=== PATIENT | male | born 1980 | race Caucasian/White ===

== ENCOUNTER 2017-07-06 13:41 | Outpatient (CLI) | payer BC, OTHER ==
[~2017-07-06] VITALS: Ht 175.3 cm; Wt 98.9 kg
[2017-07-06] MEDS ORDERED: IOHEXOL 350 MG/ML 100 ML (OMNIPAQUE 350) VIAL IV ONE (13:45)
[2017-07-06] MEDS ORDERED: CATHETER FLUSH 10 ML SYR IV PRN (13:45)
[2017-07-06] MEDS ORDERED: NS 100 ML (IVPB) BAG IV ONE (13:45)
[2017-07-06 15:16] LABS: BASOPHILS # (AUTO) 0.1 10^3/uL (0.0-0.1); BASOPHILS % (AUTO) 1 % (0-10); EOSINOPHILS # (AUTO) 0.2 10^3/uL (0.0-0.3); EOSINOPHILS % (AUTO) 3 % (0-10); LYMPHOCYTES # (AUTO) 1.8 X 10^3 (1.0-4.0); LYMPHOCYTES % (AUTO) 25 % (12-44); MEAN CORPUSCULAR HEMOGLOBIN 30 PG (25-34); MEAN CORPUSCULAR HGB CONC 35 G/DL (32-36); MEAN CORPUSCULAR VOLUME 85 FL (80-99); MEAN PLATELET VOLUME 10.4 FL (7.4-10.4); MONOCYTES # (AUTO) 0.7 X 10^3 (0.0-1.0); MONOCYTES % (AUTO) 10 % (0-12); NEUTROPHILS # (AUTO) 4.5 X 10^3 (1.8-7.8); NEUTROPHILS % (AUTO) 62 % (42-75); PLATELET COUNT 184 10^3/uL (130-400); RED BLOOD COUNT 5.02 10^6/uL (4.35-5.85); RED CELL DISTRIBUTION WIDTH 13.4 % (10.0-14.5); WHITE BLOOD COUNT 7.3 10^3/uL (4.3-11.0)
[2017-07-06 15:35] LABS: ANION GAP 6 MMOL/L (5-14); BLOOD UREA NITROGEN 21 MG/DL (7-18); BUN/CREATININE RATIO 21; CALCIUM 8.8 MG/DL (8.5-10.1); CARBON DIOXIDE 27 MMOL/L (21-32); CHLORIDE 105 MMOL/L (98-107); CREATININE SERUM 0.99 MG/DL (0.60-1.30); GFR ESTIMATED > 60; GLUCOSE 87 MG/DL (70-105); POTASSIUM 4.5 MMOL/L (3.6-5.0); SODIUM 138 MMOL/L (135-145)
--- NOTE | 2017-07-06 17:11 | Diagnostic Imaging Report ---
PROCEDURE: CT neck soft tissue with contrast. TECHNIQUE: Multiple contiguous axial images were obtained through the neck after the administration of contrast. INDICATION: Patient reports mass left side anterior to the ear. States this has been present for years but is getting larger. FINDINGS: There is a well circumscribed mass within the superficial lobe of the left parotid gland measuring approximately 3 x 2.8 cm. This does appear to have some mixed enhancement following IV contrast. This is solid in nature. No cervical chain adenopathy of pathologic size is demonstrated. The right parotid gland appears normal. The submandibular glands are normal. There is good preservation of tissue planes along the strap muscles. There is normal enhancement of the cervical vessels. The parapharyngeal tissue planes appear normal. The nasopharynx and oropharynx appear normal as does the larynx. IMPRESSION: 1. There is a relatively well encapsulated soft tissue mass in the superficial lobe of the parotid gland on the left which is solid with some enhancement. In this age group, with history of slow growth of the tumor, pleomorphic adenoma would be number one in the differential. Mucoepidermoid carcinoma could not be excluded in this age group. Dictated by: Dictated on workstation # [id number]
== END 2017-07-06 15:10 | disposition home or self-care (01) ==
LOC: RAD 13:41
PROVIDERS: ATTEND Otolaryngology Otolaryngology/Facial Plastic Surgery
DX: R22.1 Localized swelling, mass and lump, neck (principal)
CPT/HCPCS: 36415; 70491; 80048; 85025; 87081; 93005

== ENCOUNTER 2017-07-22 06:00 | Day surgery (SDC) | payer BC, OTHER ==
[~2017-07-22] VITALS: Ht 175.3 cm; Wt 98.9 kg
[2017-07-22 06:05] VITALS: BP 148/96
[2017-07-22] MEDS: LACTATED RINGERS 1,000 ML IV PRN ×3 (06:20→10:30)
[2017-07-22] MEDS ORDERED: LACTATED RINGERS 1,000 ML IV PRN (06:40)
[2017-07-22] MEDS ORDERED: proPOfol 200 MG/20 ML (DIPRIVAN) VIAL IV ONE (06:45)
[2017-07-22] MEDS ORDERED: LIDOCAINE PF 2% 5 ML (XYLOCAINE) VIAL ONE (06:45)
[2017-07-22] MEDS ORDERED: SEVOFLURANE (ULTANE) 15 ML INHAL SOLN ONE ×12 (06:45→10:26)
[2017-07-22] MEDS ORDERED: fentaNYL INJECTION 100 MCG/2 ML AMP ONE ×3 (06:46→11:03)
[2017-07-22] MEDS ORDERED: MIDAZOLAM 2 MG/2 ML (VERSED) VIAL ONE (06:47)
[2017-07-22] MEDS ORDERED: ONDANSETRON 4 MG/2 ML (SDV) Z0FRAN ONE (06:55)
[2017-07-22] MEDS ORDERED: SUCCINYLCHOLINE INJ 100 MG/5 ML SYR ONE (06:55)
[2017-07-22] MEDS ORDERED: DEXAMETHASONE 10 MG/ML (DECADRON) 1 ML VIAL ONE (06:55)
--- NOTE | 2017-07-22 06:58 | Progress Note-Pre Operative ---
Pre-Operative Progress Note H&P Reviewed The H&P was reviewed, patient examined and no changes noted. Date Seen by Provider: Jul 22, 2017 Time Seen by Provider: 06:30 Date H&P Reviewed: Jul 22, 2017 Time H&P Reviewed: 06:30 Pre-Operative Diagnosis: Left Parotid Mass XANDER MONROY MD Jul 22, 2017 6:57 am
[2017-07-22] MEDS ORDERED: MUPIROCIN 2% OINT 22 GM (BACTROBAN) TUBE ONE (07:15)
[2017-07-22] MEDS ORDERED: LIDOCAINE/EPI 1%-1:200,000 (XYLOCAINE) 10 ML VIAL ONE (07:16)
[2017-07-22] MEDS ORDERED: NS IV 500 ML 0 ML ONE (07:18)
[2017-07-22] MEDS ORDERED: NEO/POLY/BACI (NEOSPORIN) OPHTH OINT 3.5 GM ONE (08:03)
[2017-07-22] MEDS ORDERED: BSS 15 ML ONE (08:06)
[2017-07-22] MEDS ORDERED: ONDANSETRON 4 MG/2 ML (SDV) Z0FRAN IVP PRN (11:30)
--- NOTE | 2017-07-22 11:34 | Progress Note-Post Operative ---
Post-Operative Progess Note Surgeon (s)/Oil Field Tester (s) Surgeon XANDER MONROY MD Oil Field Tester n/a Pre-Operative Diagnosis Left Parotid Mass Post-Operative Diagnosis same Post-Op Procedure Note Date of Procedure: Jul 22, 2017 Name of Procedure Performed: Left Partoidectomy with Preservation of VII nerve Description & Findings Description and Findings: n/a Anesthesia Type get Estimated Blood Loss minimal Packing none. Specimen(s) collected/removed large right parotid mass XANDER MONROY MD Jul 22, 2017 11:34 am
[2017-07-22] MEDS ORDERED: morphine INJ 10 MG/ML 1ML (SYR OR VIAL) ONE (11:40)
[2017-07-22] MEDS: morphine INJ 10 MG/ML 1ML (SYR OR VIAL) IVP PRN ×2 (11:42→11:51)
[2017-07-22] MEDS ORDERED: ACETAMINOPHEN 325 MG TABLET/CAPLET (TYLENOL) PO PRN (11:45)
[2017-07-22] MEDS: fentaNYL INJECTION 100 MCG/2 ML AMP IVP PRN ×4 (11:59→23:34)
[2017-07-22] MEDS: HYDROcodone/APAP 5 MG/325 MG (LORTAB) TAB PO PRN ×3 (13:06→21:36)
[2017-07-22] MEDS ORDERED: fentaNYL INJECTION 100 MCG/2 ML AMP IVP PRN (14:00)
[2017-07-22] MEDS: D5 1/2 NS W/KCL 20 MEQ/L 1,000 ML IV SCH (15:10)
[2017-07-22 16:00] VITALS: BP 160/92
[2017-07-22] MEDS ORDERED: CATHETER FLUSH 10 ML SYR IV PRN (17:30)
[2017-07-22] MEDS: ONDANSETRON 4 MG/2 ML (SDV) Z0FRAN IVP PRN ×2 (17:36→21:35)
--- NOTE | 2017-07-22 17:39 | Progress Note-Standard ---
Standard Progress Note Progress Notes/Assess & Plan Date Seen by Provider: Jul 22, 2017 Time Seen by Provider: 17:00 Progress/Assessment & Plan ENT-Jaden S/P Left Parotid doing well-mild nausea-received zofran also received fentanyl for pain INicison dry and intact-minimal drainage in drain Face-minimal to no weakness of left side of face overall doing well' may repeat fentanyl q 3-4 hours as needed zofran 4mg q 8 prn regular diet plan on drain out in am and then home path pending Final Diagnosis s/p left parotid XANDER MONROY MD Jul 22, 2017 5:39 pm
[2017-07-22 19:42] VITALS: BP 156/86
[2017-07-23] VITALS: BP 140/83
[2017-07-23] MEDS: HYDROcodone/APAP 5 MG/325 MG (LORTAB) TAB PO PRN ×2 (02:58→07:21)
[2017-07-23 04:00] VITALS: BP 145/77
[2017-07-23] MEDS: D5 1/2 NS W/KCL 20 MEQ/L 1,000 ML IV SCH ×2 (04:19→04:54)
[2017-07-23] MEDS: fentaNYL INJECTION 100 MCG/2 ML AMP IVP PRN (04:54)
--- NOTE | 2017-07-23 05:30 | Progress Note-Standard ---
Standard Progress Note Progress Notes/Assess & Plan Date Seen by Provider: Jul 23, 2017 Time Seen by Provider: 05:30 Progress/Assessment & Plan ENT-Roque S/P Left Parotid doing well-mild nausea-received zofran also received fentanyl for pain INicison dry and intact-minimal drainage in drain Face-minimal to no weakness of left side of face overall doing well' may repeat fentanyl q 3-4 hours as needed zofran 4mg q 8 prn regular diet plan on drain out in am and then home path pending ZAHEER-Roque Minimal drainge fro mdrain drain d'selma INcision -flat and intact face-good movement will dischage after breakfast RTC-1 week ft [facility] Discharge prescriptions in the chart along with note for work XANDER MONROY MD Jul 23, 2017 5:30 am
[2017-07-23 08:00] VITALS: BP 155/94
[2017-07-23] MEDS ORDERED: MUPIROCIN 2% OINT 22 GM (BACTROBAN) TUBE TOP SCH ×2 (08:17→08:30)
[2017-07-23] MEDS ORDERED: MUPI22OI2 TOP (08:42)
== END 2017-07-23 08:51 | disposition home or self-care (01) ==
LOC: SDC 06:00 → 4TH 12:25 → SDC 07-23 08:51
PROVIDERS: ATTEND Otolaryngology Otolaryngology/Facial Plastic Surgery
DX: C07 Malignant neoplasm of parotid gland (principal); F17.220 Nicotine dependence, chewing tobacco, uncomplicated
CPT/HCPCS: 88307

== ENCOUNTER 2019-12-04 15:26 | Emergency (ER) | payer BC, OTHER ==
[~2019-12-04] VITALS: Ht 175.3 cm; Wt 102.6 kg
[~2019-12-04 15:26] MED LIST: MUPI22OI2 TOP
--- NOTE | 2019-12-04 15:35 | ED Lower Extremity ---
General Chief Complaint: Lower Extremity Stated Complaint: FOOT INJ Source: patient Exam Limitations: no limitations History of Present Illness Date Seen by Provider: Dec 04, 2019 Time Seen by Provider: 15:35 Initial Comments 39-year-old male presents with pain and swelling to his right great toe. Patient reports around Wednesday of last week he was lifting some rohith when he thinks he jammed it. Reports that he has some mild pain and swelling in the joint. Patient reports his gotten a little bit worse since it started. He does not have any warmness to it. There is some mild erythema. He is concerned he possibly broke it. Patient denies any other injury since the initial insult. No other systemic complaints. Allergies and Home Medications Allergies Coded Allergies: No Known Drug Allergies (Unverified , 07/06/17) Home Medications Mupirocin 22 Gm Oint...g., 0 GM TOP BID Prescribed by: CALEB FARRELL on 07/23/17 0842 Patient Home Medication List Home Medication List Reviewed: Yes Review of Systems Constitutional: no symptoms reported Cardiovascular: no symptoms reported Musculoskeletal: see HPI Skin: see HPI Psychiatric/Neurological: No Symptoms Reported Past Rctsmzp-Vgoygo-Oxurfg Hx Past Med/Social Hx: Reviewed Nursing Past Med/Soc Hx Patient Social History Alcohol Use: Denies Use Recreational Drug Use: No Type Used: Smokeless Tobacco Recent Foreign Travel: No Contact w/Someone Who Travel: No Recent Hopitalizations: No Immunizations Up To Date Tetanus Booster (TDap): Unknown PED Vaccines UTD: No Date of Influenza Vaccine: May 10, 2017 Seasonal Allergies Seasonal Allergies: Yes Past Medical History Surgeries: Yes (LEFT WRIST, LEFT LEG X2, WISDOM TEETH, ) Respiratory: No Cardiac: No Neurological: No Gastrointestinal: No Musculoskeletal: No Degenerate Disk Disease Endocrine: No Cancer: No Psychosocial: No Integumentary: No Blood Disorders: No Family Medical History Patient reports no known family medical history. Physical Exam Vital Signs Vital Signs - First Documented 12/04/19 15:30 Temp 36.7 Pulse 76 Resp 16 B/P (MAP) 133/74 (93) Pulse Ox 99 O2 Delivery Room Air Capillary Refill : Height, Weight, BMI Height: 5'9.00" Weight: 218lbs. 0.0oz. 98.125890xj; 32.2 BMI Method: General Appearance: no apparent distress Neck: full range of motion Cardiovascular: regular rate, rhythm Respiratory: no respiratory distress Gastrointestinal: No distended Hips: bilateral hip non-tender Legs: bilateral leg non-tender Knees: bilateral knee non-tender Ankles: bilateral ankle non-tender Feet: right foot other (mild swelling of the joint on the right great toe. No warmth or erythema appreciated.) Neurologic/Psychiatric: alert, normal mood/affect, oriented x 3 Progress/Results/Core Measures Results/Orders My Orders Orders - CAROLINA LABOY DO Toe(S) (12/04/19 15:38) Vital Signs/I&O 12/04/19 15:30 Temp 36.7 Pulse 76 Resp 16 B/P (MAP) 133/74 (93) Pulse Ox 99 O2 Delivery Room Air Diagnostic Imaging Diagonstic Imaging: Xray Comments [place], [place] NAME: SONAM [facility]OSS [facility] REC#: [id number] PT STATUS: REG ER : 1980 PHYSICIAN: CAROLINA LABOY DO ADMIT DATE: 12/04/19/ER FS Draft Date of Exam:12/04/19 TOE(S) HISTORY: Pain in the great toe of the right foot x 1 week. No known injury. TECHNIQUE: Three views of the right great toe. COMPARISON: None. FINDINGS: No acute fracture or dislocation is seen in the right great toe. The alignment appears normal. There is minimal degenerative change at the 1st MTP joint. No cortical erosions are seen. No radiopaque foreign body is identified. IMPRESSION: No acute osseous abnormality is seen in the right great toe. Departure Impression Primary Impression: Sprain of toe, great, right Qualified Codes: S93.501A - Unspecified sprain of right great toe, initial encounter Disposition: HOME, SELF-CARE Condition: Stable Departure-Patient Inst. Referrals: NO,LOCAL PHYSICIAN (PCP/Family) Primary Care Physician Patient Instructions: Toe Injury (DC), Gout (DC), Foot Sprain (DC) Add. Discharge Instructions: Emergency department focuses on treating and ruling out life-threatening diseases. Whenever possible, a diagnosis is given. However, most patients are given an impression based on their history, physical exam, and workup during your brief time in the ER. Information about probable diagnosis and other educational material has been provided. Please take the time to read and understand this information. It is very important that you follow up with a physician as discussed during the visit today. Failure to adhere to your follow-up instructions may lead to severe disability, injury, or so please make sure to keep your appointments or obtain one as requested. Please keep in mind the emergency department is not designed to your primary care or "family doctor" and nonurgent issues are best evaluated by an outpatient physician All discharge instructions reviewed with patient and/or family. Voiced understanding. Scripts Naproxen (Naprosyn) 500 Mg Tablet 500 MG PO BID, #30 TAB 0 Refills Prov: CAROLINA LABOY DO 12/04/19 CAROLINA LABOY DO Dec 04, 2019 15:35
--- OUTSIDE RECORDS SUMMARY | 2019-12-04 15:48 | XMS REPORT | Continuity of Care Document ---
Author Organization Unknown Address Unknown Phone Unavailable Allergies Active Description Code Type Severity Reaction Onset Reported/Identified Relationship to Patient Clinical Status Yes No Allergy Information Available [id number] Drug Allergy Unknown N/A 017 Yes No Known Drug Allergies [id number] Drug Allergy Unknown N/A 07/06/2017 Medications There is no data. Problems Date Dx Coded Attending Type Code Diagnosis Diagnosed By 07/06/2017 XANDER MONROY MD, Ot R22 .1 LOCALIZED SWELLING, MASS AND LUMP, NECK 07/23/2017 XANDER MONROY MD Ot C07 MALIGNANT NEOPLASM OF PAROTID GLAND 07/23/2017 XANDER MONROY MD Ot F17.220 NICOTINE DEPENDENCE, CHEWING TOBACCO, UN 08/12/2017 XANDER MONROY MD Ot C07 MALIGNANT NEOPLASM OF PAROTID GLAND 08/12/2017 XANDER MONROY MD, Ot F17.220 NICOTINE DEPENDENCE, CHEWING TOBACCO, UN Procedures There is no data. Results Test Result Range Complete blood count (CBC) with automate d white blood cell (WBC) differential - 07/06/17 15:07 Blood leukocytes automated count (number/volume) 7.3 10*3/uL 4.3-11.0 Blood erythrocytes automated count (number/volume) 5.02 10*6/uL 4.35-5.85 Venous blood hemoglobin measurement (mass/volume) 15.1 g/dL 13.3-17.7 Blood hematocrit (volume fraction) 43 % 40-54 Automated erythrocyte mean corpuscular volume 85 [ foz_us] 80-99 Automated erythrocyte mean corpuscular h emoglobin (mass per erythrocyte) 30 pg 25-34 Automated erythrocyte mean corpuscular h emoglobin concentration measurement (mass/volume) 35 g/dL 32-36 Automated erythrocyte distribution width ratio 13. 4 % 10.0- 14.5 Automated blood platelet count (count/volume) 184 10*3/uL 130-400 Automated blood platelet mean volume measurement 10.4 [foz_us] 7.4-10.4 Automated blood neutrophils/100 leukocytes 62 % 42-75 Automated blood lymphocytes/100 leukocytes 25 % 12-44 Blood monocytes/100 leukocytes 10 % 0-12 Automated blood eosinophils/100 leukocytes 3 % 0-10 Automated blood basophils/100 leukocytes 1 % 0-10 Blood neutrophils automated count (number/volume) 4.5 10*3 1.8-7.8 Blood lymphocytes automated count (number/volume) 1.8 10*3 1.0-4.0 Blood monocytes automated count (number/volume) 0. 7 10*3 0.0-1.0 Automated eosinophil count 0.2 10*3/uL 0 .0-0.3 Automated blood basophil count (count/volume) 0.1 10*3/uL 0.0-0.1 Whole blood basic metabolic panel - 06/10 03/25 15:07 Serum or plasma sodium measurement (moles/volume) 138 mmol/L 135-145 Serum or plasma potassium measurement (moles/volume) 4.5 mmol/L 3.6-5.0 Serum or plasma chloride measurement (moles/volume) 105 mmol/L 98-107 Carbon dioxide 27 mmol/L 21-32 Serum or plasma anion gap determination (moles/volume) 6 mmol/L 5-14 Serum or plasma urea nitrogen measurement (mass/volume ) 21 mg/dL 7-18 Serum or plasma creatinine measurement (mass/volume) 0.99 mg/dL 0.60-1.30 Serum or plasma urea nitrogen/creatinine mass ratio 21 NRG Serum or plasma creatinine measurement w ith calculation of estimated glomerular filtration rate > NRG Serum or plasma glucose measurement (mass/volume) 87 mg/dL 70-105 Serum or plasma calcium measurement (mass/volume) 8.8 mg/dL 8.5-10.1 Methicillin resistant Staphylococcus aur eus (MRSA) screening culture - 07/06/17 15:07 Methicillin resistant Staphylococcus aureus (MRSA) scr eening culture NEG NRG Encounters ACCT No. Visit Date/Time Discharge Status Pt. Type Provider Facility Loc./Unit Complaint [id number] 07/22/2017 06:00:00 017 08:51:00 DIS Outpatient PORFIRIO CHUN, XANDER [facility] SDC LEFT NECK MASS, PLEOMOR PHIC ADENOMA [id number] 07/06/2017 13:41:00 017 15:10:00 DIS Outpatient PORFIRIO CHUN, XANDER [place] [facility] RAD LEFT NECK MASS
--- NOTE | 2019-12-04 15:59 | NUR ---
Report from Toya VILLASENOR.
--- NOTE | 2019-12-04 16:00 | Diagnostic Imaging Report ---
HISTORY: Pain in the great toe of the right foot x 1 week. No known injury. TECHNIQUE: Three views of the right great toe. COMPARISON: None. FINDINGS: No acute fracture or dislocation is seen in the right great toe. The alignment appears normal. There is minimal degenerative change at the 1st MTP joint. No cortical erosions are seen. No radiopaque foreign body is identified. IMPRESSION: No acute osseous abnormality is seen in the right great toe. Dictated by: Dictated on workstation # [id number]
[2019-12-04] MEDS ORDERED: NAPR-1071 PO (16:11)
[2019-12-04 16:15] VITALS: BP 136/69
== END 2019-12-04 16:15 | disposition home or self-care (01) ==
LOC: EDUNIT# 15:26 → ER FS 15:28
DX: S93.501A Unspecified sprain of right great toe, initial encounter (principal); W23.1XXA Caught, crushed, jammed, or pinched between stationary objects, initial encounter
CPT/HCPCS: 73660

== ENCOUNTER 2019-12-15 17:16 | Emergency (ER) | payer OTHER ==
[~2019-12-15] VITALS: Ht 173 cm; Wt 103.6 kg
[~2019-12-15 17:16] MED LIST changes: +NAPR-1071 PO
--- NOTE | 2019-12-15 17:39 | ED Upper Extremity ---
General Chief Complaint: Laceration Stated Complaint: THUMB LACERATION Nursing Triage Note: c/o laceration to L thumb while cutting rohith. Nursing Sepsis Screen: No Definite Risk Source: patient Exam Limitations: no limitations History of Present Illness Date Seen by Provider: December 15, 2019 Time Seen by Provider: 17:38 Initial Comments cut left thumb using a knife. not sure about tetanus status. Onset: just prior to arrival Allergies and Home Medications Allergies Coded Allergies: No Known Drug Allergies (Unverified , 07/06/17) Home Medications Mupirocin 22 Gm Oint...g., 0 GM TOP BID Prescribed by: CALEB FARRELL on 07/23/17 0842 Naproxen 500 Mg Tablet, 500 MG PO BID Prescribed by: CAROLINA LABOY on 12/04/19 1611 Oxycodone HCl/Acetaminophen 1 Each Tablet, 1 EACH PO Q4H PRN for PAIN-MODERATE Prescribed by: DELORES STILL on 12/15/19 1921 Patient Home Medication List Home Medication List Reviewed: Yes Review of Systems Constitutional: no symptoms reported Musculoskeletal: see HPI, other (thumb injury/ lac) Skin: see HPI Psychiatric/Neurological: See HPI Past Gdhvfve-Bilzpn-Hfalgy Hx Past Med/Social Hx: Reviewed Nursing Past Med/Soc Hx Patient Social History Alcohol Use: Denies Use Recreational Drug Use: No Smoking Status: Never a Smoker Type Used: Smokeless Tobacco Recent Foreign Travel: No Contact w/Someone Who Travel: No Recent Infectious Disease Expo: No Recent Hopitalizations: No Immunizations Up To Date Tetanus Booster (TDap): Unknown PED Vaccines UTD: No Date of Influenza Vaccine: May 10, 2017 Seasonal Allergies Seasonal Allergies: Yes Past Medical History Surgeries: Yes (LEFT WRIST, LEFT LEG X2, WISDOM TEETH, ) Respiratory: No Cardiac: No Neurological: No Gastrointestinal: No Musculoskeletal: No Degenerate Disk Disease Endocrine: No Cancer: No Psychosocial: No Integumentary: No Blood Disorders: No Family Medical History Patient reports no known family medical history. Physical Exam Vital Signs Vital Signs - First Documented 12/15/19 17:23 Temp 36.2 Pulse 85 Resp 18 B/P (MAP) 178/99 (125) Pulse Ox 98 Capillary Refill : Less Than 3 Seconds Height, Weight, BMI Height: 5'9.00" Weight: 218lbs. 0.0oz. 98.960554le; 34.00 BMI Method: General Appearance: WD/WN, no apparent distress Wrist: Yes normal inspection, Yes non-tender, Yes no evidence of injury, Yes normal ROM Hand: normal ROM Neurologic/Psychiatric: alert, normal mood/affect Skin: normal color, other (distal tip left thumb w sagital cut/ laceration flap of 1/[address] around. poor perfusion of flap. No nail involvement) Procedures/Interventions Wound Location: Upper Extremities (left thumb) Other Wound Location tip of left thumb- 2 cm sagital cut/ lac w 1/2 tip flap Wound Length (cm): 2 Wound's Depth, Shape: linear, flap Wound Explored: clean Anesthesia: 0.5% Sensorcaine Volume Anesthetic (ccs): 8 Suture: Ethlion Suture Size: 4-0 Number of Sutures: 5 Sterile Dressing Applied?: Yes Progress tolerated well. Initially blocked w lidocaine, but ineffective and what little effect there was only lasted an unusually short period. Followed up w Marcaine w good success. Progress/Results/Core Measures Results/Orders My Orders Orders - DELORES STILL DO Lidocaine 1% Inj 20 Ml (Xylocaine 1% Inj (12/15/19 17:45) Dipht,Pertuss(Acell),Tet Adult (Boostrix (12/15/19 17:45) Bacitracin Ointment (Bacitracin Ointment (12/15/19 17:45) Bupivacaine 0.5% Injection (Sensorcaine (12/15/19 18:45) Bupivacaine 0.5% Injection (Sensorcaine (12/15/19 18:33) Medications Given in ED Current Medications Medications Dose Ordered Sig/Benny Route Start Time Stop Time Status Last Admin Dose Admin Bacitracin 1 gm ONCE ONCE TOP 12/15/19 17:45 12/15/19 17:46 DC 12/15/19 17:49 28 GM Diphtheria/ Tetanus/Acell Pertussis 0.5 ml ONCE ONCE IM 12/15/19 17:45 12/15/19 17:46 DC 12/15/19 17:49 0.5 ML Lidocaine HCl 20 ml ONCE ONCE INJ 12/15/19 17:45 12/15/19 17:46 DC 12/15/19 17:49 20 ML Vital Signs/I&O 12/15/19 17:23 Temp 36.2 Pulse 85 Resp 18 B/P (MAP) 178/99 (125) Pulse Ox 98 Blood Pressure Mean: 125 Departure Impression Primary Impression: Laceration of thumb, left Qualified Codes: S61.012A - Laceration without foreign body of left thumb without damage to nail, initial encounter Disposition: HOME, SELF-CARE Condition: Improved Departure-Patient Inst. Decision time for Depature: 19:20 Referrals: NO,LOCAL PHYSICIAN (PCP/Family) Primary Care Physician Patient Instructions: Laceration Repair With Stitches (DC) Add. Discharge Instructions: See your doctor in 10 days for suture removal. All discharge instructions reviewed with patient and/or family. Voiced un derstanding. Scripts Oxycodone HCl/Acetaminophen (Oxycodone-Acetaminophen 5-325) 1 Each Tablet 1 EACH PO Q4H PRN for PAIN-MODERATE MDD 6, #10 TAB 0 Refills Prov: DELORES STILL DO 12/15/19 DELORES STILL DO December 15, 2019 17:39
[2019-12-15] MEDS ORDERED: LIDOCAINE 1% INJ 20 ML 20 ML VIAL INJ ONE (17:45)
[2019-12-15] MEDS ORDERED: TETANUS,DIPTH,PERTUSS P/F (BOOSTRIX) 0.5 ML VIAL IM ONE (17:45)
[2019-12-15] MEDS ORDERED: BACITRACIN OINTMENT 28 GM TUBE TOP ONE (17:45)
[2019-12-15] MEDS ORDERED: BUPIVACAINE 0.5% 30 ML (SENSORCAINE) VIAL ONE (18:33)
--- OUTSIDE RECORDS SUMMARY | 2019-12-15 18:38 | XMS REPORT | Continuity of Care Document ---
Author Organization Unknown Address Unknown Phone Unavailable Allergies Active Description Code Type Severity Reaction Onset Reported/Identified Relationship to Patient Clinical Status Yes No Allergy Information Available [id number] Drug Allergy Unknown N/A 017 Yes No Known Drug Allergies [id number] Drug Allergy Unknown N/A 07/06/2017 Medications There is no data. Problems Date Dx Coded Attending Type Code Diagnosis Diagnosed By 07/06/2017 PORFIRIO CHUN, XANDER [place] Ot R22 .1 LOCALIZED SWELLING, MASS AND LUMP, NECK 07/23/2017 XANDER MONROY MD Ot C07 MALIGNANT NEOPLASM OF PAROTID GLAND 07/23/2017 XANDER MONROY MD Ot F17.220 NICOTINE DEPENDENCE, CHEWING TOBACCO, UN 08/12/2017 XANDER MONROY MD Ot C07 MALIGNANT NEOPLASM OF PAROTID GLAND 08/12/2017 XANDER MONROY MD Ot F17.220 NICOTINE DEPENDENCE, CHEWING TOBACCO, UN 12/07/2019 LABOY DO, CAROLINA L Ot M79.6 74 PAIN IN RIGHT TOE(S) 12/07/2019 LABOY DO, CAROLINA L Ot S93.501A UNSPECIFIED SPRAIN OF RIGHT GREAT TOE, I 12/07/2019 LABOY DO, CAROLINA L Ot W23.1XXA CAUGHT, CRUSH, JAMMED, OR PINCHED BETW S Procedures There is no data. Results Test [...] Status Pt. Type Provider Facility Loc./Unit Complaint [id number] 12/04/2019 15:28:00 020 16:15:00 DIS Outpatient CAROLINA LABOY DO [facility] ER FS FOOT INJ [id number] 07/22/2017 06:00:00 017 08:51:00 DIS Outpatient PORFIRIO HCUN, XANDER [place] [facility] SDC LEFT NECK MASS, PLEOMOR PHIC ADENOMA [id number] 07/06/2017 13:41:00 017 15:10:00 DIS Outpatient PORFIRIO CHUN, XANDER [place] [facility] RAD LEFT NECK MASS [id number] 12/15/2019 17:17:[address] Emergency DELORES STILL DO [facility] ER FS THUMB LACERATION
[2019-12-15] MEDS ORDERED: BUPIVACAINE 0.5% 30 ML (SENSORCAINE) VIAL INJ ONE (18:45)
[2019-12-15] MEDS ORDERED: OXYC-471 PO (19:21)
[2019-12-15 19:32] VITALS: BP 178/99
== END 2019-12-15 19:32 | disposition home or self-care (01) ==
LOC: EDUNIT# 17:16 → ER FS 17:17
DX: S61.012A Laceration without foreign body of left thumb without damage to nail, initial encounter (principal); W26.0XXA Contact with knife, initial encounter
CPT/HCPCS: 12001; 90471; 90715

== ENCOUNTER 2019-12-23 16:45 | Emergency (ER) | payer OTHER ==
[~2019-12-23 16:45] MED LIST changes: +OXYC-471 PO
--- OUTSIDE RECORDS SUMMARY | 2019-12-23 16:52 | XMS REPORT | Continuity of Care Document ---
Author Organization Unknown Address Unknown Phone Unavailable Allergies Active Description Code Type Severity Reaction Onset Reported/Identified Relationship to Patient Clinical Status Yes No Allergy Information Available [id number] Drug Allergy Unknown N/A 017 Yes No Known Drug Allergies [id number] Drug Allergy Unknown N/A 07/06/2017 Medications There [...] CAUGHT, CRUSH, JAMMED, OR PINCHED BETW S 12/15/2019 ROVENSTINE DODELORES Ot M79.645 PAIN IN LEFT FINGER(S) 12/15/2019 ROVENSTINE DODELORES Ot S61.012A LACERATION W/O FB OF LEFT THUMB W/O OLIVE 12/15/2019 ROVENSTINE DODELORES Ot W26.0XXA CONTACT WITH KNIFE, INITIAL ENCOUNTER 12/18/2019 ROVENSTINE DODELORES Ot M79.645 PAIN IN LEFT FINGER(S) 12/18/2019 ROVENSTINE DO, DELORES L Ot S61.012A LACERATION W/O FB OF LEFT THUMB W/O OLIVE 12/18/2019 ROVENSTINE DODELORES Ot W26.0XXA CONTACT WITH KNIFE, INITIAL ENCOUNTER Procedures There is no data. Results Test [...] Status Pt. Type Provider Facility Loc./Unit Complaint [id number] 12/15/2019 17:17:00 19:32:00 DIS Emergency ROVENSTINE DELORES TAMAYO [facility] ER FS THUMB LACERATIO N [id number] 12/04/2019 15:28:00 020 16:15:00 DIS Outpatient CAROLINA LABOY DO [facility] ER FS FOOT INJ [id number] 07/22/2017 06:00:00 017 08:51:00 DIS Outpatient XANDER MONROY MD [facility] SDC LEFT NECK MASS, PLEOMOR PHIC ADENOMA [id number] 07/06/2017 13:41:00 017 15:10:00 DIS Outpatient XANDER MONROY MD [facility] RAD LEFT NECK MASS
== END 2019-12-23 16:59 | disposition home or self-care (01) ==
LOC: EDUNIT# 16:45 → ER FS 16:47
DX: Z48.02 Encounter for removal of sutures (principal)

== ENCOUNTER 2019-12-29 17:33 | Emergency (ER) | payer OTHER ==
[~2019-12-29] VITALS: Ht 172.7 cm; Wt 101.9 kg
[2019-12-29 17:50] VITALS: BP 157/93
--- OUTSIDE RECORDS SUMMARY | 2019-12-29 19:35 | XMS REPORT | Continuity of Care Document ---
Author Organization Unknown Address Unknown Phone Unavailable Allergies Active Description Code Type Severity Reaction Onset Reported/Identified Relationship to Patient Clinical Status Yes No Allergy Information Available [id number] Drug Allergy Unknown N/A 017 Yes No Known Drug Allergies [id number] Drug Allergy Unknown N/A 07/06/2017 Medications There [...] Status Pt. Type Provider Facility Loc./Unit Complaint [id number] 12/23/2019 16:47:00 16:59:00 DIS Emergency DELMER OCONNOR MD [facility] ER FS SUTURE REMOVAL [id number] 12/15/2019 17:17:00 19:32:00 DIS Emergency ROVENSTINE DELORES TAMAYO [facility] ER FS THUMB LACERATIO N [id number] 12/04/2019 15:28:00 16:15:00 DIS Outpatient CAROLINA LABOY DO [facility] ER FS FOOT INJ [id number] 07/22/2017 06:00:00 08:51:00 DIS Outpatient XANDER MONROY MD [facility] SDC LEFT NECK MASS, PLEOMOR PHIC ADENOMA [id number] 07/06/2017 13:41:00 15:10:00 DIS Outpatient XANDER MONROY MD [facility] RAD LEFT NECK MASS
== END 2019-12-29 17:49 | disposition home or self-care (01) ==
LOC: EDUNIT# 17:33 → ER FS 17:34
DX: S61.012D Laceration without foreign body of left thumb without damage to nail, subsequent encounter (principal); X58.XXXD Exposure to other specified factors, subsequent encounter

== ENCOUNTER → 2020-01-30 | Outpatient (CLI) | payer OTHER ==
--- NOTE | 2020-01-30 13:47 | Diagnostic Imaging Report ---
INDICATION: Knee swelling, injury five months ago. TECHNIQUE: Three views of the right knee. CORRELATION STUDY: None. FINDINGS: The joint spaces are maintained. The articular surfaces are smooth and preserved. There is no acute bony abnormality. 7 mm in length wire-like fragment is positioned within the joint, just to the lateral of midline. There is presence of soft tissue swelling particularly over the anterior aspect of the knee anterior and inferior to the patella. Probable small joint effusion. IMPRESSION: 1. Negative for acute bony abnormality of the knee. 2. Findings compatible with a metallic, wire-like foreign body within the joint space. 3. Rather prominent soft tissue edema over the anterior aspect of the knee and small joint effusion. Dictated by: Dictated on workstation # [id number]
== END ==
LOC: RAD FS 12:22
PROVIDERS: ATTEND Nurse Practitioner Family
DX: M25.461 Effusion, right knee (principal)
CPT/HCPCS: 73562

== ENCOUNTER 2020-02-01 22:17 | Emergency (ER) | payer OTHER ==
[~2020-02-01] VITALS: Ht 172.7 cm; Wt 101.9 kg
--- OUTSIDE RECORDS SUMMARY | 2020-02-01 22:22 | XMS REPORT | Continuity of Care Document ---
Author Organization Unknown Address Unknown Phone Unavailable Allergies Active Description Code Type Severity Reaction Onset Reported/Identified Relationship to Patient Clinical Status Yes No Allergy Information Available [id number] Drug Allergy Unknown N/A 017 Yes No Known Drug Allergies [id number] Drug Allergy Unknown N/A 07/06/2017 Medications There [...] FB OF LEFT THUMB W/O OLIVE 12/18/2019 ROVENSTDELORES MCKEON DO Ot W26.0XXA CONTACT WITH KNIFE, INITIAL ENCOUNTER 12/23/2019 ELVIN CHUN, DELMER Ibrahim Ot Z48.02 ENCOUNTER FOR REMOVAL OF SUTURES 01/02/2020 RIA ROCKWELL DO Ot S61.012D LACERATION W/O FB OF LEFT THUMB W/O OLIVE 01/02/2020 RIA ROCKWELL DO Ot X58.XXXD EXPOSURE TO OTHER SPECIFIED FACTORS, SUB Procedures There is no data. Results Test [...] Status Pt. Type Provider Facility Loc./Unit Complaint [id number] 12/29/2019 17:34:00 17:49:00 DIS Outpatient RIA ROCKWELL DO Via [facility] ER FS STITCH REMOVAL [id number] 12/23/2019 16:47:00 16:59:00 DIS Emergency DELMER OCONNOR MD [facility] ER FS SUTURE REMOVAL [id number] 12/15/2019 17:17:00 19:32:00 DIS Emergency ROVENSTDELORES MCKEON DO [facility] ER FS THUMB LACERATIO N [id number] 12/04/2019 15:28:00 16:15:00 DIS Outpatient CAROLINA LABOY DO [facility] ER FS FOOT INJ [id number] 07/22/2017 06:00:00 08:51:00 DIS Outpatient XANDER MONROY MD [facility] SDC LEFT NECK MASS, PLEOMOR PHIC ADENOMA [id number] 07/06/2017 13:41:00 017 15:10:00 DIS Outpatient XANDER MONROY MD [facility] RAD LEFT NECK MASS [id number] 01/30/2020 12:22:[address] Outpatient LUNA HAYNES [facility] [place] RAD FS KNEE SWELLING
[2020-02-01 22:28] VITALS: BP 141/88
[2020-02-01] MEDS ORDERED: BUPIVACAINE 0.5% 30 ML (SENSORCAINE) VIAL INJ ONE (22:30)
[2020-02-01] MEDS ORDERED: LEVOFLOXACIN 500 MG TAB (LEVAQUIN) PO ONE (23:00)
--- NOTE | 2020-02-01 23:07 | ED Upper Extremity ---
General Chief Complaint: Laceration Stated Complaint: THUMB LACERATION Nursing Triage Note: PT AMBULATE TO ROOM FS01 WITH C/O RIGHT THUMB LAC. PT REPORTS GETTING RIGHT THUMB CAUGHT I A RATCHET STRAP WHILE WORKING ON A VEHICLE. Nursing Sepsis Screen: No Definite Risk Source: patient Exam Limitations: no limitations History of Present Illness Date Seen by Provider: Feb 01, 2020 Time Seen by Provider: 22:25 Initial Comments Patient is a right-handed male who presents with laceration to right thumb interphalangeal joint. Patient was using a car ratchet to get his jeep unstuck from the [employer] when he lacerated his right thumb. Laceration occurred 3 hours prior to ED arrival. Patient did wash off in the shower prior to coming to the emergency department and is currently on an unknown antibiotic treatment of potential staph infection. Patient denies other symptoms or complaints. Date of last tetanus is within the past 10 years. On exam, the patient has an approximately one and half centimeter full thickness stellate laceration with extensor surface of the right thumb interphalangeal joint. Wound although previously clean is grossly contaminated with fine particles of dirt clear to be present. There is no appreciated disruption of tendon sheath or exposed bone. Bleeding is controlled. Neurovascular function is intact.. Allergies and Home Medications Allergies Coded Allergies: No Known Drug Allergies (Unverified , 07/06/17) Home Medications Mupirocin 22 Gm Oint...g., 0 GM TOP BID Prescribed by: CALEB FARRELL on 07/23/17 0842 Naproxen 500 Mg Tablet, 500 MG PO BID Prescribed by: CAROLINA LABOY on 12/04/19 1611 Oxycodone HCl/Acetaminophen 1 Each Tablet, 1 EACH PO Q4H PRN for PAIN-MODERATE Prescribed by: DELORES STILL on 12/15/19 1921 Patient Home Medication List Home Medication List Reviewed: Yes Review of Systems Constitutional: no symptoms reported Musculoskeletal: see HPI Skin: no symptoms reported Past Arbgpwc-Dctdnv-Hyvvjs Hx Past Med/Social Hx: Reviewed Nursing Past Med/Soc Hx Patient Social History Alcohol Use: Denies Use Recreational Drug Use: No Smoking Status: Never a Smoker Type Used: Smokeless Tobacco Recent Foreign Travel: No Contact w/Someone Who Travel: No Recent Infectious Disease Expo: No Recent Hopitalizations: No Physical Abuse: No Sexual Abuse: No Mistreated: No Fear: No Immunizations Up To Date Tetanus Booster (TDap): Unknown PED Vaccines UTD: No Date of Influenza Vaccine: May 10, 2017 Seasonal Allergies Seasonal Allergies: Yes Past Medical History Surgeries: Yes (LEFT WRIST, LEFT LEG X2, WISDOM TEETH, ) Respiratory: No Cardiac: No Neurological: No Gastrointestinal: No Musculoskeletal: No Degenerate Disk Disease Endocrine: No Cancer: No Psychosocial: No Integumentary: No Blood Disorders: No Family Medical History Patient reports no known family medical history. Physical Exam Vital Signs Vital Signs - First Documented 02/01/20 22:28 Temp 35.9 Pulse 117 Resp 18 B/P (MAP) 141/88 (105) O2 Delivery Room Air Capillary Refill : Less Than 3 Seconds Height, Weight, BMI Height: 5'9.00" Weight: 218lbs. 0.0oz. 98.751529ls; 34.00 BMI Method:Actual General Appearance: WD/WN, no apparent distress Wrist: Yes normal inspection Hand: Right, laceration (the patient has an approximately one and half centimeter full thickness stellate laceration with extensor surface of the right thumb interphalangeal joint. Wound although previously clean is grossly contaminated with fine particles of dirt clear to be present. There is no appreciated disruption of tendon sheath or exposed bone. Bleeding is controlled. Neurovascular function is intact), soft tissue tenderness Neurologic/Psychiatric: no motor/sensory deficits Procedures/Interventions Suture Size: 4-0 Progress/Results/Core Measures Results/Orders My Orders Orders - RIA ROCKWELL DO Finger(S) (02/01/20 22:28) Bupivacaine 0.5% Injection (Sensorcaine (02/01/20 22:30) Levofloxacin Tablet (Levaquin Tablet) (02/01/20 23:00) Vital Signs/I&O 02/01/20 22:28 Temp 35.9 Pulse 117 Resp 18 B/P (MAP) 141/88 (105) O2 Delivery Room Air Blood Pressure Mean: 105 Departure Communication (Admissions) Right thumb x-ray obtained: No gross foreign bodies. Patient's right thumb laceration injected with bupivacaine and closely inspected with find particulate matter found to be present. Patient irrigated under brisk warm tap water for greater than 10 minutes while was vigorously scrubbed with a surgical scrub brush and reexamined 3 times to ensure that all residual visible contamination was removed. Given location and high risk of infection, the wound was not closed. It was soaked in soaked in betadine and loosely wrapped and placed in sling. Levaquin was given for [place] microbial coverage. Patient instructed to follow up with PCP next office day or return to the ED for reevaluation or sooner if signs of infection. Patient verbalizes understanding of high risk of infection and potential loss of thumb agrees to home wound care and discharge instructions. Impression Primary Impression: Laceration of thumb, right Disposition: 20 Condition: Stable Departure-Patient Inst. Referrals: NO,LOCAL PHYSICIAN (PCP/Family) Primary Care Physician Patient Instructions: Laceration Infection Add. Discharge Instructions: You were evaluated in the ED for laceration of right thumb with contamination. The laceration was not closed due to high risk of infection and needs to be car efully monitor with bandage changes twice more often as needed. Please present to your PCP or return to the ED in the next 24 hours for wound reevaluation return sooner if signs of infection. Please fill antibiotics and take next dose tomorrow afternoon. You may take ibuprofen and tramadol as needed for pain medication. All discharge instructions reviewed with patient and/or family. Voiced understanding. Scripts Levofloxacin (Levaquin) 500 Mg Tablet 500 MG PO DAILY, #10 TAB Prov: RIA ROCKWELL DO 02/01/20 Tramadol HCl (Tramadol HCl) 50 Mg Tablet 50 MG PO Q6H PRN for PAIN for 3 Days, #14 TAB 0 Refills Prov: RIA ROCKWELL DO 02/01/20 RIA ROCKWELL DO Feb 01, 2020 23:07
[2020-02-01] MEDS ORDERED: LEVO500T2 PO (23:11)
[2020-02-01] MEDS ORDERED: TRM50T PO (23:11)
--- NOTE | 2020-02-02 06:08 | Diagnostic Imaging Report ---
Indication: Right thumb injury 3 views of the right thumb show no fracture, dislocation or other acute abnormalities. IMPRESSION: Negative right thumb Dictated by: Dictated on workstation # [id number]
== END 2020-02-01 23:16 | disposition home or self-care (01) ==
LOC: EDUNIT# 22:17 → ER FS 22:18
DX: S61.011A Laceration without foreign body of right thumb without damage to nail, initial encounter (principal); W23.1XXA Caught, crushed, jammed, or pinched between stationary objects, initial encounter
CPT/HCPCS: 73140

== ENCOUNTER 2020-03-23 01:38 | Emergency (ER) | payer OTHER ==
[~2020-03-23] VITALS: Ht 172.7 cm; Wt 103.4 kg
[~2020-03-23 01:38] MED LIST changes: +LEVO500T2 PO; +TRM50T PO
[2020-03-23 01:45] VITALS: BP 160/96
--- OUTSIDE RECORDS SUMMARY | 2020-03-23 01:45 | XMS REPORT | Continuity of Care Document ---
Author Author [employer] [facility] [employer] Organization [employer] Address Unknown Phone Unavailable Allergies Active Description Code Type Severity Reaction Onset Reported/Identified Relationship to Patient Clinical Status Yes No Allergy Information Available [id number] Drug Allergy Unknown N/A 017 Yes No Known Drug Allergies [id number] Drug Allergy Unknown N/A 07/06/2017 Medications There is no data. Problems Date Dx Coded Attending Type Code Diagnosis Diagnosed By 07/06/2017 XANDER MONROY MD Ot R22 .1 LOCALIZED SWELLING, MASS AND [...] OF RIGHT GREAT TOE, I 12/07/2019 LABOY DOHEIDICAROLINA L Ot W23.1XXA CAUGHT, CRUSH, JAMMED, OR PINCHED BETW S 12/15/2019 ROVENSTINE DODELORES Ot M79.645 PAIN IN LEFT FINGER(S) 12/15/2019 ROVENSTINE DODELORES Ot S61.012A LACERATION W/O FB OF LEFT THUMB W/O OLIVE 12/15/2019 ROVENSTINE DODELORES Ot W26.0XXA CONTACT WITH KNIFE, INITIAL ENCOUNTER 12/18/2019 ROVENSTINE DODELORES Ot M79.645 PAIN IN LEFT FINGER(S) 12/18/2019 ROVENSTINE DODELORES Ot S61.012A LACERATION W/O FB OF LEFT THUMB W/O OLIVE 12/18/2019 [facility] DO, DELORES Varghese Ot W26.0XXA CONTACT WITH KNIFE, INITIAL ENCOUNTER 12/23/2019 ELVIN CHUN, DELMER Ibrahim Ot Z48.02 ENCOUNTER FOR REMOVAL OF SUTURES 01/02/2020 [facility], RIA Ot S61.012D LACERATION W/O FB OF LEFT THUMB W/O OLIVE 01/02/2020 [facility], RIA Ot X58.XXXD EXPOSURE TO OTHER SPECIFIED FACTORS, SUB 02/01/2020 LUNA HAYNES Ot M25.46 1 EFFUSION, RIGHT KNEE 02/01/2020 [facility], RIA Ot M79.644 PAIN IN RIGHT FINGER(S) 02/01/2020 [facility], RIA Ot S61.011A LACERATION W/O FB OF RIGHT THUMB W/O DAM 02/01/2020 [facility], RIA Ot W23.1XXA CAUGHT, CRUSH, JAMMED, OR PINCHED BETW S 02/04/2020 [facility], RIA Ot M79.644 PAIN IN RIGHT FINGER(S) 02/04/2020 [facility], RIA Ot S61.011A LACERATION W/O FB OF RIGHT THUMB W/O DAM 02/04/2020 [facility], RIA Ot W23.1XXA CAUGHT, CRUSH, JAMMED, OR PINCHED BETW S 02/04/2020 [facility], RIA Ot M79.644 PAIN IN RIGHT FINGER(S) 02/04/2020 [facility], RIA Ot S61.011A LACERATION W/O FB OF RIGHT THUMB W/O DAM 02/04/2020 [facility], RIA Ot W23.1XXA CAUGHT, CRUSH, JAMMED, OR PINCHED BETW S 02/05/2020 LUNA HAYNES Ot M25.46 1 EFFUSION, RIGHT KNEE Procedures There is no data. Results Test [...] Status Pt. Type Provider Facility Loc./Unit Complaint [id number] 02/01/2020 22:18:00 23:16:00 DIS Emergency LULI TAMAYO RIA Via [facility] ER FS THUMB LACERATION [id number] 01/30/2020 12:22:00 23:59:59 CLS Outpatient LUNA HAYNES Via [facility] RAD FS KNEE SWELLING [id number] 12/29/2019 17:34:00 17:49:00 DIS Outpatient RIA ROCKWELL DO [facility] ER FS STITCH REMOVAL [id number] 12/23/2019 16:47:00 16:59:00 DIS Emergency DELMER OCONNOR MD [facility] ER FS SUTURE REMOVAL [id number] 12/15/2019 17:17:00 19:32:00 DIS Emergency ROVENSTINE DELORES TAMAYO Via [facility] ER FS THUMB LACERATIO N [id number] 12/04/2019 15:28:00 16:15:00 DIS Outpatient CAROLINA LABOY DO [facility] ER FS FOOT INJ [id number] 07/22/2017 06:00:00 08:51:00 DIS Outpatient XANDER MONROY MD Via [facility] SDC LEFT NECK MASS, PLEOMOR PHIC ADENOMA [id number] 07/06/2017 13:41:00 15:10:00 DIS Outpatient XANDER MONROY MD Via [facility] RAD LEFT NECK MASS [id number] 03/23/2020 01:41:[address] Emergency PADMAJA RIVERA MD [facility] ER FS RT ANKLE INJURY
--- NOTE | 2020-03-23 02:15 | ED Lower Extremity ---
General Chief Complaint: Lower Extremity Stated Complaint: RT ANKLE INJURY Nursing Triage Note: Patient states he was playing baseball yesterday and took a line drive to his inner right foot. Nursing Sepsis Screen: No Definite Risk History of Present Illness Date Seen by Provider: Mar 23, 2020 Time Seen by Provider: 02:00 Initial Comments Patient's a softball to the inside of his right foot quite a bit of swelling he was wearing cleats at the time but over the last couple hours gunned bigger. Has fairly good range of motion but tenderness and swelling are concerning. His history of injury Onset: this evening Pain/Injury Location: right foot, right ankle Method of Injury: direct blow Modifying Factors: Improves With Immobilization; Worse With Movement Allergies and Home Medications Allergies Coded Allergies: No Known Drug Allergies (Unverified , 07/06/17) Home Medications Levofloxacin 500 Mg Tablet, 500 MG PO DAILY Prescribed by: RIA ROCKWELL on 02/01/20 2311 Mupirocin 22 Gm Oint...g., 0 GM TOP BID Prescribed by: CALEB FARRELL on 07/23/17 0842 Naproxen 500 Mg Tablet, 500 MG PO BID Prescribed by: CAROLINA LABOY on 12/04/19 1611 Oxycodone HCl/Acetaminophen 1 Each Tablet, 1 EACH PO Q4H PRN for PAIN-MODERATE Prescribed by: DELORES STILL on 12/15/19 1921 Tramadol HCl 50 Mg Tablet, 50 MG PO Q6H PRN for PAIN Prescribed by: RIA ROCKWELL on 02/01/20 2311 Patient Home Medication List Home Medication List Reviewed: Yes Review of Systems Constitutional: no symptoms reported Musculoskeletal: joint pain, joint swelling Skin: no symptoms reported Psychiatric/Neurological: Denies Numbness, Denies Tingling Past Ovmcxqn-Dirzie-Izwrgk Hx Past Med/Social Hx: Reviewed Nursing Past Med/Soc Hx Patient Social History Alcohol Use: Denies Use Recreational Drug Use: No Type Used: Smokeless Tobacco Recent Foreign Travel: No Contact w/Someone Who Travel: No Recent Infectious Disease Expo: No Recent Hopitalizations: No Physical Abuse: No Sexual Abuse: No Mistreated: No Fear: No Immunizations Up To Date Tetanus Booster (TDap): Unknown PED Vaccines UTD: No Date of Influenza Vaccine: May 10, 2017 Seasonal Allergies Seasonal Allergies: Yes Past Medical History Surgeries: Yes (LEFT WRIST, LEFT LEG X2, WISDOM TEETH, ) Respiratory: No Cardiac: No Neurological: No Gastrointestinal: No Musculoskeletal: No Degenerate Disk Disease Endocrine: No Cancer: No Psychosocial: No Integumentary: No Blood Disorders: No Family Medical History Patient reports no known family medical history. Physical Exam Vital Signs Vital Signs - First Documented 03/23/20 01:45 Temp 36.7 Pulse 104 Resp 18 B/P (MAP) 160/96 (117) Pulse Ox 95 O2 Delivery Room Air Capillary Refill : Less Than 3 Seconds Height, Weight, BMI Height: 5'9.00" Weight: 218lbs. 0.0oz. 98.826166zc; 34.00 BMI Method:Actual General Appearance: WD/WN, no apparent distress Ankles: right ankle other (swelling just below the medial malleolus with pain down into the arch good range of motion no plantar fascial pain mild discoloration secondary to bruising.) Neurologic/Tendon: normal motor functions Neurologic/Psychiatric: no motor/sensory deficits, alert, normal mood/affect, oriented x 3 Skin: normal color, warm/dry Procedures/Interventions Suture Size: 4-0 Progress/Results/Core Measures Results/Orders My Orders Orders - PADMAJA RIVERA JR, MD Foot 3 View Right (03/23/20 02:11) Ankle 3 View Right (03/23/20 02:11) Vital Signs/I&O 03/23/20 01:45 Temp 36.7 Pulse 104 Resp 18 B/P (MAP) 160/96 (117) Pulse Ox 95 O2 Delivery Room Air Blood Pressure Mean: 117 Departure Communication (Admissions) No fracture identified feel like he probably has broken veins on the surface of the skin causing the swelling we'll wait for radiology over read will use crutches if Impression Primary Impression: Contusion of foot Qualified Codes: S90.31XA - Contusion of right foot, initial encounter Disposition: HOME, SELF-CARE Condition: Stable Departure-Patient Inst. Referrals: NO,LOCAL PHYSICIAN (PCP/Family) Primary Care Physician Patient Instructions: Contusion (DC) PADMAJA RIVERA JR, MD Mar 23, 2020 02:15
--- NOTE | 2020-03-23 07:18 | Diagnostic Imaging Report ---
EXAMINATION: Right ankle radiographs, 3 views. COMPARISON: None. HISTORY: 39-year-old male, injury. Right ankle and foot pain. FINDINGS: The alignment of the ankle mortise is unremarkable. There is no identified acute fracture. There is no prominent focal soft tissue swelling. There is no radiopaque foreign body. There is no identified tibiotalar joint effusion. The joint spaces appear well-preserved. IMPRESSION: Unremarkable radiographs of the right ankle. Dictated by: Dictated on workstation # [id number]
--- NOTE | 2020-03-23 07:19 | Diagnostic Imaging Report ---
EXAMINATION: Right foot radiographs, 3 views. COMPARISON: None. HISTORY: 39-year-old male, injury. Right foot and ankle pain. FINDINGS: There is a normal variant os peroneum. There is minimal osteophyte associated with the lateral aspect of the first metatarsophalangeal joint without particularly prominent joint space loss. There is normal variant congenital fusion of the fifth digit middle and distal phalanges. There is a normal variant os navicularis. There is no tibiotalar joint effusion. There is no identified acute fracture. There is no radiopaque foreign body. Bone alignment is unremarkable. IMPRESSION: 1. No identified acute bony abnormality of the right foot. 2. 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 Dictated by: Dictated on workstation # [id number]
== END 2020-03-23 02:40 | disposition home or self-care (01) ==
LOC: EDUNIT# 01:38 → ER FS 01:41
DX: S90.31XA Contusion of right foot, initial encounter (principal); W21.03XA Struck by baseball, initial encounter; Y93.64 Activity, baseball
CPT/HCPCS: 73610; 73630

== ENCOUNTER 2020-06-13 09:44 | Emergency (ER) | payer BC, OTHER ==
[~2020-06-13] VITALS: Ht 175 cm; Wt 100.0 kg
--- NOTE | 2020-06-13 09:50 | ED General ---
General Stated Complaint: HEADACHE; VOMITING; LIGHT HEADED Source of Information: Patient Exam Limitations: No Limitations History of Present Illness Date Seen by Provider: Jun 13, 2020 Time Seen by Provider: 09:49 Initial Comments 39-year-old male presents with headache. Patient reports he had a headache last night that lasted approximate 5-10 minutes with one episode of vomiting. Patient has a history of tension/migraine headaches but reports that this is worse than his normal ones. Patient has a mild "tension headache" starting right now. [facility] to make sure to have a head bleed. Patient has not had any further episodes of vomiting besides the one he had last night. He has no focal deficits. No vision changes. He reports that his he sent in here he is getting a little bit of a headache that is very consistent with his normal tension headaches. He denies any fevers chills generalized body aches, cough or other systemic complaints Allergies and Home Medications Allergies Coded Allergies: No Known Drug Allergies (Unverified , 07/06/17) Home Medications Levofloxacin 500 Mg Tablet, 500 MG PO DAILY Prescribed by: RIA ROCKWELL on 02/01/20 2311 Mupirocin 22 Gm Oint...g., 0 GM TOP BID Prescribed by: CALEB FARRELL on 07/23/17 0842 Naproxen 500 Mg Tablet, 500 MG PO BID Prescribed by: CAROLINA LABOY on 12/04/19 1611 Oxycodone HCl/Acetaminophen 1 Each Tablet, 1 EACH PO Q4H PRN for PAIN-MODERATE Prescribed by: DELORES STILL on 12/15/19 1921 Tramadol HCl 50 Mg Tablet, 50 MG PO Q6H PRN for PAIN Prescribed by: RIA ROCKWELL on 02/01/20 2311 Patient Home Medication List Home Medication List Reviewed: Yes Review of Systems Review of Systems Constitutional: no symptoms reported EENTM: no symptoms reported Respiratory: no symptoms reported Cardiovascular: no symptoms reported Gastrointestinal: see HPI Genitourinary: no symptoms reported Musculoskeletal: no symptoms reported Skin: no symptoms reported Psychiatric/Neurological: See HPI Hematologic/Lymphatic: No Symptoms Reported Immunological/Allergic: no symptoms reported Past Vlxuilo-Bgefny-Jrrrnq Hx Past Med/Social Hx: Reviewed Nursing Past Med/Soc Hx Patient Social History Type Used: Smokeless Tobacco Recent Foreign Travel: No Contact w/Someone Who Travel: No Recent Hopitalizations: No Immunizations Up To Date Tetanus Booster (TDap): Unknown PED Vaccines UTD: No Date of Influenza Vaccine: May 10, 2017 Seasonal Allergies Seasonal Allergies: Yes Past Medical History Surgeries: Yes (LEFT WRIST, LEFT LEG X2, WISDOM TEETH, ) Respiratory: No Cardiac: No Neurological: No Gastrointestinal: No Musculoskeletal: No Degenerate Disk Disease Endocrine: No Cancer: No Psychosocial: No Integumentary: No Blood Disorders: No Family Medical History Patient reports no known family medical history. Physical Exam Vital Signs Vital Signs - First Documented 06/13/20 09:53 Temp 36.1 Pulse 71 Resp 18 B/P (MAP) 152/102 (119) Pulse Ox 98 O2 Delivery Room Air Capillary Refill : Height, Weight, BMI Height: 5'9.00" Weight: 218lbs. 0.0oz. 98.148212vk; 34.00 BMI Method:Actual General Appearance: No Apparent Distress, WD/WN Eyes: Bilateral Eye Normal Inspection, Bilateral Eye PERRL, Bilateral Eye EOMI HEENT: PERRL/EOMI, Pharynx Normal, Moist Mucous Membranes Neck: Full Range of Motion, Normal Inspection, Non Tender, Supple Respiratory: Lungs Clear, Normal Breath Sounds Cardiovascular: Regular Rate, Rhythm, No Edema Gastrointestinal: Non Tender, Soft Back: Normal Inspection Extremity: Normal Capillary Refill, Normal Inspection, Normal Range of Motion Neurologic/Psychiatric: Alert, Oriented x3, No Motor/Sensory Deficits, Normal Mood/Affect, manager delivery II-XII Norm as Tested Reflexes: 2+ Bicep (R), 2+ Bicep (L), 2+ Knee (R), 2+ Knee (L) Skin: Normal Color, Warm/Dry Procedures/Interventions Suture Size: 4-0 Progress/Results/Core Measures Suspected Sepsis SIRS Temperature: Pulse: Respiratory Rate: Blood Pressure / Mean: Results/Orders My Orders Orders - CAROLINA LABOY DO Ct Head Wo (06/13/20 09:54) Ketorolac Injection (Toradol Injection) (06/13/20 09:54) Orphenadrine Inj (Ed Only) (Norflex Inje (06/13/20 09:54) Vital Signs/I&O 06/13/20 09:53 Temp 36.1 Pulse 71 Resp 18 B/P (MAP) 152/102 (119) Pulse Ox 98 O2 Delivery Room Air Capillary Refill : Progress Note : Time: 10:55 Progress Note Patient's history and exam were consistent with his known episodic headache history. I obtain a CT due to the [facility] by [facility] and the [facility] was reviewed and was negative. Patient symptoms once again are very consistent with his known headache history. He was given some Toradol and Norflex Diagnostic Imaging Diagonstic Imaging: CT Plain Films/CT/US/NM/MRI: head Comments [facility] [place] [place] NAME: SONAM CROSS [facility] REC#: [id number] PT STATUS: REG ER : 1980 PHYSICIAN: CAROLINA LABOY DO ADMIT DATE: 06/13/20/ER FS Draft Date of Exam:06/13/20 CT HEAD WO PROCEDURE: CT head without contrast. TECHNIQUE: Multiple contiguous axial images were obtained through the brain without the use of intravenous contrast. Auto Exposure Controls were utilized during the CT exam to meet ALARA standards for radiation dose reduction. INDICATION: Severe headache. No prior studies are available for comparison. Ventricles and sulci are within normal limits. No sulcal effacement or midline shift is identified. No acute intra-axial or extra-axial hemorrhage is identified. Patient does have cavum septa pellucida and cavum vergae a normal variant. Cisterns are patent. The visualized paranasal sinuses are clear. IMPRESSION: No acute intracranial process is detected. Dictated on workstation # [id number] Reviewed: Reviewed/Discussed Departure Impression Primary Impression: Tension-type headache, unspecified, not intractable Qualified Codes: G44.219 - Episodic tension-type headache, not intractable Disposition: HOME, SELF-CARE Condition: Stable Departure-Patient Inst. Referrals: NO,LOCAL PHYSICIAN (PCP/Family) Primary Care Physician Patient Instructions: Tension Headache (DC), How to Keep Track of Your Headaches, Headache, Adult Add. Discharge Instructions: [facility] with [facility] or your primary care provider as needed CAROLINA LABOY DO Jun 13, 2020 09:50
[2020-06-13] MEDS ORDERED: ORPHENADRINE 60 MG/2 ML (NORFLEX) AMP (ED ONLY) IM STA (09:54)
[2020-06-13] MEDS ORDERED: KETOROLAC 60 MG/2 ML VIAL IM STA (09:54)
--- NOTE | 2020-06-13 10:49 | Diagnostic Imaging Report ---
PROCEDURE: CT head without contrast. TECHNIQUE: Multiple contiguous axial images were obtained through the brain without the use of intravenous contrast. Auto Exposure Controls were utilized during the CT exam to meet ALARA standards for radiation dose reduction. INDICATION: Severe headache. No prior studies are available for comparison. Ventricles and sulci are within normal limits. No sulcal effacement or midline shift is identified. No acute intra-axial or extra-axial hemorrhage is identified. Patient does have cavum septa pellucida and cavum vergae a normal variant. Cisterns are patent. The visualized paranasal sinuses are clear. IMPRESSION: No acute intracranial process is detected. Dictated by: Dictated on workstation # [id number]
[2020-06-13 10:55] VITALS: BP 132/82
== END 2020-06-13 10:56 | disposition home or self-care (01) ==
LOC: EDUNIT# 09:44 → ER FS 09:45
DX: G44.209 Tension-type headache, unspecified, not intractable (principal)
CPT/HCPCS: 70450

== ENCOUNTER → 2020-11-18 | Outpatient (CLI) | payer BC, OTHER ==
[~2020-11-18] MED LIST changes: -OXYC-471 PO; +OXYC1TAB11 PO
--- NOTE | 2020-11-18 17:00 | Diagnostic Imaging Report ---
PROCEDURE: MRI right joint lower extremity without contrast. TECHNIQUE: Multiplanar, multisequence non contrast-enhanced MRI of the right lower extremity was accomplished. INDICATION: Right ankle injury playing softball. Peroneal tendinitis. Plantar fasciitis. COMPARISON: Radiographs from 03/23/2020. FINDINGS: No acute fracture is seen in the right ankle and hindfoot. Alignment appears normal. No joint effusion is seen. The anterior and posterior syndesmotic ligaments appear intact. The anterior talofibular and posterior talofibular ligaments are intact. The calcaneofibular ligament is intact. The deep fibers of the deltoid ligament appear intact. The spring ligament is intact. The central plantar fascia demonstrates focal thickening up to 6 mm, about 2.5 cm distal to the calcaneal origin, and measuring about 1.8 cm in length. The sinus tarsi demonstrates normal fat intensity. The Achilles and peroneal tendons appear normal. The flexor tendons are unremarkable. There is minimal fluid in the tendon sheath which appears to be within normal limits. The extensor tendons appear normal. No muscular atrophy is seen. The tarsal tunnel is unremarkable. No fluid collections or masses are seen. IMPRESSION: 1. Nodular thickening of the central right plantar fascia, suggestive of nodular plantar fibromatosis. No tear is seen. 2. No ligament or tendon tear is seen in the right ankle. No acute osseous abnormality. Dictated by: Dictated on workstation # [id number]
--- NOTE | 2020-11-18 17:54 | Diagnostic Imaging Report ---
EXAMINATION: Magnetic resonance imaging of the left ankle without contrast. DATE: November 18, 2020. COMPARISON: None. HISTORY: 40-year-old male, right ankle injury. Right ankle pain. TECHNIQUE: Magnetic Resonance Imaging sequences were performed of the ankle without contrast. [< >] FINDINGS: TENDONS AND LIGAMENTS: The Achilles tendon is unremarkable. There is fluid in the tendon sheaths of tibialis posterior, flexor digitorum longus, and flexor hallucis longus. This is consistent with tenosynovitis. There is no identified tear of a posterior flexor tendon. The peroneal tendons - peroneus longus and peroneus brevis - are intact. The anterior extensor tendons - tibialis anterior, extensor hallucis longus and extensor digitorum longus tendons - are intact. The anterior and posterior syndesmotic ligaments are intact. The anterior talofibular, posterior talofibular, calcaneofibular and deltoid ligaments are intact. The plantar fascia is intact. JOINTS: The ankle mortise is intact. The subtalar and visualized joints of the mid-foot are intact. There is no joint effusion. BONE: There is an os navicularis without evidence of abnormal motion. The bone marrow signal is within normal limits. Specifically, negative for fracture, osteomyelitis, osteonecrosis, or marrow replacing process. The talar dome is intact. BURSAE AND SOFT TISSUES: The bursae and soft tissues surrounding the ankle are unremarkable. IMPRESSION: 1. Tenosynovitis of tibialis posterior, flexor digitorum longus, and flexor hallucis longus. Negative for tendon tear. 2. Intact ankle ligaments. 3. No acute fracture, bone contusion, or other bone marrow signal abnormality. Intact talar dome. 4. Normal variant os navicularis without evidence of abnormal motion. Dictated by: Dictated on workstation # [id number]
== END ==
LOC: RAD 15:30
PROVIDERS: ATTEND Podiatrist Foot & Ankle Surgery
DX: M76.71 Peroneal tendinitis, right leg (principal); M72.2 Plantar fascial fibromatosis
CPT/HCPCS: 73721

== ENCOUNTER 2020-12-03 23:42 | Emergency (ER) | payer OTHER, BC ==
[~2020-12-03] VITALS: Ht 175.3 cm; Wt 102.1 kg
[2020-12-04 00:18] LABS: CLARITY,URINE CLEAR; COLOR,URINE YELLOW
[2020-12-04 00:19] LABS: BACTERIA,URINE NEGATIVE /HPF; BILIRUBIN,URINE NEGATIVE (NEGATIVE); GLUCOSE, URINE (UA) NEGATIVE (NEGATIVE); KETONES,URINE NEGATIVE (NEGATIVE); LEUKOCYTE ESTERASE ,URINE NEGATIVE (NEGATIVE); NITRITE,URINE NEGATIVE (NEGATIVE); PROTEIN,URINE 1+ (NEGATIVE); RBC,URINE 25-50 /HPF; SQUAMOUS EPITHELIAL CELL,UR 0-2 /HPF
--- NOTE | 2020-12-04 00:23 | ED GU-Male ---
General Chief Complaint: - Urinary Stated Complaint: URINARY PAIN Nursing Triage Note: PT AMBULATE TO ROOM FS02 WITH C/O BURNING DURING URINATION STARTING TODAY. PT REPORTS DISCHARGE FROM [facility]. Source: patient History of Present Illness Date Seen by Provider: Dec 04, 2020 Time Seen by Provider: 00:00 Initial Comments Patient is a 40-year-old male who presents with dysuria described as burning and stinging. Symptom onset began 3 hours prior to ED arrival. They are described as mild and are only present during urination. Patient also reports scant urethral discharge. He denies flank pain, hematuria, nausea vomiting, fever chills and sweats. Denies testicular pain tenderness swelling. Denies new sexual partners or concern for STD exposure. He is currently in a monogamous long-term relationship with a female. No history of diabetes or kidney stones. Timing/Duration: just prior to arrival Severity/Quality: mild Location: urethral Radiation: other Activities at Onset: other Sexual Blanca History: other Modifying Factors: Improves With Other Allergies and Home Medications Allergies Coded Allergies: No Known Drug Allergies (Unverified , 07/06/17) Home Medications Levofloxacin 500 Mg Tablet, 500 MG PO DAILY Prescribed by: RIA ROCKWELL on 02/01/20 2311 Mupirocin 22 Gm Oint...g., 0 GM TOP BID Prescribed by: CALEB FARRELL on 07/23/17 0842 Naproxen 500 Mg Tablet, 500 MG PO BID Prescribed by: CAROLINA LABOY on 12/04/19 1611 Oxycodone HCl/Acetaminophen 1 Each Tablet, 1 EACH PO Q4H PRN for PAIN-MODERATE Prescribed by: DELORES STILL on 12/15/19 1921 Tramadol HCl 50 Mg Tablet, 50 MG PO Q6H PRN for PAIN Prescribed by: RIA ROCKWELL on 02/01/20 2311 Patient Home Medication List Home Medication List Reviewed: Yes Review of Systems Review of Systems Constitutional: see HPI EENTM: see HPI Respiratory: see HPI Cardiovascular: see HPI Genitourinary: see HPI Musculoskeletal: see HPI Skin: see HPI Psychiatric/Neurological: See HPI Endocrine: See HPI Hematologic/Lymphatic: See HPI All Other Systemes Reviewed Negative Unless Noted: Yes Past Nhmclfa-Tkxamn-Eullga Hx Past Med/Social Hx: Reviewed Nursing Past Med/Soc Hx Patient Social History Alcohol Use: Denies Use Smoking Status: Never a Smoker Type Used: Smokeless Tobacco 2nd Hand Smoke Exposure: No Recent Infectious Disease Expo: No Recent Hopitalizations: No Immunizations Up To Date Tetanus Booster (TDap): Unknown PED Vaccines UTD: No Date of Influenza Vaccine: May 10, 2017 Seasonal Allergies Seasonal Allergies: Yes Past Medical History Surgeries: Yes (LEFT WRIST, LEFT LEG X2, WISDOM TEETH, ) Respiratory: No Cardiac: No Neurological: No Gastrointestinal: No Musculoskeletal: No Degenerate Disk Disease Endocrine: No Cancer: No Psychosocial: No Integumentary: No Blood Disorders: No Family Medical History Patient reports no known family medical history. Physical Exam Vital Signs Vital Signs - First Documented 12/03/20 23:48 Temp 36.4 Pulse 109 Resp 18 B/P (MAP) 161/101 (121) O2 Delivery Room Air Capillary Refill : Less Than 3 Seconds Height, Weight, BMI Height: 5'9.00" Weight: 218lbs. 0.0oz. [id number]; 33.00 BMI Method:Actual General Appearance: WD/WN, no apparent distress HEENT: PERRL/EOMI Neck: supple Cardiovascular: regular rate, rhythm Respiratory: lungs clear Back: normal inspection Extremities: normal inspection Neurologic/Psychiatric: alert, oriented x 3 Skin: normal color, warm/dry; No rash Focused Exam Sepsis Stage: Ruled Out Procedures/Interventions Suture Size: 4-0 Progress/Results/Core Measures Suspected Sepsis Recent Fever Within 48 Hours: No Infection Criteria Present: None New/Unexplained Altered Menta: No Sepsis Screen: No Definite Risk SIRS Temperature: Pulse: 109 Respiratory Rate: 18 Blood Pressure 161 /101 Mean: 121 Results/Orders Lab Results Laboratory Tests Test 12/03/20 23:55 Range/Units Urine Color YELLOW Urine Clarity CLEAR Urine pH 6.0 5-9 Urine Specific [place] >=1.030 1.016-1.022 Urine Protein 1+ H NEGATIVE Urine Glucose (UA) NEGATIVE NEGATIVE Urine Ketones NEGATIVE NEGATIVE Urine Nitrite NEGATIVE NEGATIVE Urine Bilirubin NEGATIVE NEGATIVE Urine Urobilinogen 0.2 < = 1.0 MG/DL Urine Leukocyte Esterase NEGATIVE NEGATIVE Urine RBC (Auto) 2+ H NEGATIVE Urine RBC 25-50 H /HPF Urine WBC 5-10 H /HPF Urine Squamous Epithelial Cells 0-2 /HPF Urine Crystals NONE /LPF Urine Bacteria NEGATIVE /HPF Urine Casts NONE /LPF Urine Mucus NEGATIVE /LPF Urine Culture Indicated NO My Orders Orders - RIA ROCKWELL DO Ua Culture If Indicated (12/03/20 23:56) Ct Abdomen/Pelvis Wo (12/04/20 00:24) Vital Signs/I&O 12/03/20 23:48 Temp 36.4 Pulse 109 Resp 18 B/P (MAP) 161/101 (121) O2 Delivery Room Air Capillary Refill : Less Than 3 Seconds Blood Pressure Mean: 121 Departure Communication (Admissions) CT abdomen pelvis: No acute disease per radiology report. Patient with hematuria without nitrates are leukocyte Estrace. WBCs present. Concern for possible kidney stone versus nephropathy versus inflammation. Will place on brief course of antibiotics with instructions to follow-up with PCP in 1 week for reevaluation. Return precautions reviewed. Patient verbalizes understanding agreement discharge instructions prior to departure. Impression Primary Impression: Dysuria Additional Impression: Hematuria Disposition: HOME, SELF-CARE Condition: Stable Departure-Patient Inst. Decision time for Depature: 01:31 Referrals: NO,LOCAL PHYSICIAN (PCP/Family) Primary Care Physician Patient Instructions: Dysuria, Adult (DC), Blood in the Urine (Hematuria), Adult (DC) Add. Discharge Instructions: Please increase fluids and take antibiotics as prescribed. Follow-up with your PCP in 5 to 7 days for reevaluation. Return to the ED if new or worsening symptoms. All discharge instructions reviewed with patient and/or family. Voiced understanding. Scripts Doxycycline Hyclate (Doxycycline Hyclate) 100 Mg Tablet 100 MG PO BID, #20 TAB 0 Refills Prov: RIA ROCKWELL DO 12/04/20 RIA ROCKWELL DO Dec 04, 2020 00:23
[2020-12-04] MEDS ORDERED: DOXY100T2 PO (01:32)
[2020-12-04 01:38] VITALS: BP 131/74
--- NOTE | 2020-12-04 07:31 | Diagnostic Imaging Report ---
PROCEDURE: CT abdomen and pelvis without contrast. TECHNIQUE: Multiple contiguous axial images were obtained through the abdomen and pelvis without the use of intravenous contrast. Auto Exposure Controls were utilized during the CT exam to meet ALARA standards for radiation dose reduction. INDICATION: Hematuria and flank pain Unenhanced images of liver and spleen reveal no focal abnormalities. There is no evidence of gallbladder, pancreatic or adrenal gland abnormality. Kidneys are also unremarkable without evidence of stone or hydronephrosis. There is no evidence of ureteric calculus or dilatation. The appendix has a normal appearance. Urinary bladder is unremarkable in appearance. Lucency through the anterior superior endplate of L3 may be congenital or related to previous injury. IMPRESSION: No acute abnormality is identified. In particular, there is no evidence of urinary tract calculus. Dictated by: Dictated on workstation # [id number]
== END 2020-12-04 01:38 | disposition home or self-care (01) ==
LOC: EDUNIT# 23:42 → ER FS 23:44
DX: R30.0 Dysuria (principal); R31.9 Hematuria, unspecified
CPT/HCPCS: 74176; 81000

== ENCOUNTER 2021-06-02 10:40 | Emergency (ER) | payer BC, OTHER ==
[~2021-06-02] VITALS: Ht 172 cm; Wt 95.0 kg
[~2021-06-02 10:40] MED LIST changes: +DOXY100T2 PO
--- OUTSIDE RECORDS SUMMARY | 2021-06-02 10:48 | XMS REPORT | Clinical Summary ---
Author Author [facility] Organization [facility] Address Unknown Phone Unavailable Care Team Providers Care Cooper Apprentice Name Role Phone No Pcp, Na PCP Unavailable Source Comments Some departments are not documenting in the electronic medical record. If you d o not see the information that you expected, contact Release of Information in [email or web address] Information Management department at [phone] for further assistan ce in locating additional records.[facility] Allergies No Known Active Allergies Medications End Date Status Medication Sig Dispensed Refills Start Date Active NO HOME MEDICATIONS 0 Active Problems Problem Noted Date Mass of left testicle 12/11/2019 Last Assessment & Plan: Formatting of this note might be differ ent from the original. Discussed additional workup for ill -de fined area of the left testicle including tumor markers and repeat scro rosario US six months following his my recent US. Ordered tumor markers. Called patient w ith results. No additional questions or concerns. Plan to request previous imaging studie s be clouded and have them reviewed by a Urologist Plan for repeat scrotal US around 02/22, 6 months after recent US in August. Plan to call patient with resu lts Left thumb mass 07/21/2018 Right small finger PIP dislocation 07/21/2018 Encounters Care Team Description Date Type Specialty Jason Wills DO 03/29/2021 Emergency Emergency Medicine 03/29/2021 Travel from Last 3 Months Immunizations Name Administration Dates Next Due Tdap Vaccine 03/29/2021 Surgical History Surgery Date Site/Laterality Comments TUMOR REMOVAL WRIST TENODESIS 08/03/2018 Fingers/Right FLEXOR DIGITOR UM SUPERFICIALIS TENODESIS RIGHT SMALL FINGER performed by Manpreet Oneill M D at [facility] Medical History Medical History Date Comments Back pain History of spinal fracture L3 - 2003 d/t fall; L1, L2, T12 - 2009 d/t fall Social History Date Tobacco Use Types Packs/Day Years Used Never Smoker Smokeless Tobacco: Chew Current User Comments Alcohol Use Standard Drinks/Week No 0 (1 standard drink = 0.6 o z pure alcohol) Alcohol Habits Answer Date Recorded How often do you have a drink containing alcohol? Never 07/21/2018 How many drinks containing alcohol do you have on No t asked a typical day when you are drinking? How often do you have six or more drinks on one Not asked occasion? Comment: Not asked Sex Assigned at Date Recorded Male 12/11/2019 9:53 AM CDT Last Filed Vital Signs Reading Time Taken Comments Vital Sign 143/78 03/29/2021 3:56 PM CDT Blood Pressure 94 03/29/2021 3:56 PM CDT Pulse 36.6 C (97.8 F) 03/29/2021 3:56 PM CDT Temperature - - Respiratory Rate 98% 03/29/2021 3:56 PM CDT Oxygen Saturation - - Inhaled Oxygen Concentration 102.1 kg (225 lb) 03/29/2021 3:56 PM CDT Weight 172.7 cm (5' 8") 12/11/2019 9:36 AM CDT Height 34.21 12/11/2019 9:36 AM CDT Body Mass Index Plan of Treatment Health Maintenance Due Date Last Done Comments HIV SCREENING 1996 HEPATITIS C SCREENING 1999 PHYSICAL (COMPREHENSIVE) 1999 EXAM INFLUENZA VACCINE 03/09/2021 DTAP/TDAP VACCINES (2 - 03/29/2031 03/29/2021 Td or Tdap) Procedures Comments Procedure Name Priority Date/Time Associated Diag nosis LACERATION REPAIR Routine 03/29/2021 3:46 PM CDT from Last 3 Months Results * Laceration Repair (03/29/2021 3:46 PM CDT) Narrative Performed At Marin Unger MD 03/29/2021 6: 44 PM Laceration Repair Date/Time: 03/29/2021 3:46 PM Performed by: Marin Unger MD Authorized by: Jason Wills DO Consent: Verbal consent obtained. Consent given by: patient Patient understanding: patient states u nderstanding of the procedure being performed Patient consent: the patient's understa nding of the procedure matches consent given Procedure consent: procedure consent ma tcmike procedure scheduled Patient identity confirmed: verbally wi patient Body area: upper extremity (R index fin joel) Laceration length: 2 cm Tendon involvement: none Nerve involvement: none Vascular damage: no Anesthesia: digital block Anesthesia: Local Anesthetic: lidocaine 1% without epinephrine Anesthetic total: 3 mL Sedation: Patient sedated: no Irrigation solution: saline Amount of cleaning: standard Skin closure: 4-0 Prolene Number of sutures: 5 Technique: simple Approximation: close Approximation difficulty: simple Dressing: non-adhesive packing strip an d 4x4 sterile gauze Patient tolerance: patient tolerated th e procedure well with no immediate complications Attending Attestation: I personally per formed the procedure myself. from Last 3 Months Insurance Type Payer Benefit Subscriber ID Effective Phone Address Plan / Dates Group [facility] CCN [id number] 2021- Present ([place]) [place], [place] [phone] Advance Directives Patient Drug And Alcohol Counselor Explanation Type Date Recorded Advance 08/26/2018 6:18 AM Directive/DPOA
[2021-06-02 10:50] VITALS: BP 180/118
--- NOTE | 2021-06-02 10:56 | ED Psychosocial ---
General Stated Complaint: AMS History of Present Illness Date Seen by Provider: Jun 02, 2021 Time Seen by Provider: 10:56 Initial Comments 40-year-old male presents because he feels like he is hyperactive. Patient feels like for a week his brain just been racing that is having difficulty with thoughts. Feels like he has been a little "foggy" throat a little while but then last week after getting his second Covid shot he feels like it is now just racing and is having all kinds of difficulty. Patient has had some diagnosis of depression in the past but no diagnosis of bipolar or sukumar. Patient is not having suicidal homicidal thoughts. Patient also has increased physical activity that he states is new as far as stamina. Allergies and Home Medications Allergies Coded Allergies: No Known Drug Allergies (Unverified , 07/06/17) Patient Home Medication List Home Medication List Reviewed: Yes Discontinued Medications Doxycycline Hyclate (Doxycycline Hyclate) 100 Mg Tablet, 100 MG PO BID Discontinued Reason: No Longer Taking Prescribed by: RIA ROCKWELL on 12/04/20 0132 Last Action: Discontinued Levofloxacin (Levaquin) 500 Mg Tablet, 500 MG PO DAILY Discontinued Reason: No Longer Taking Prescribed by: RIA ROCKWELL on 02/01/201 Last Action: Discontinued Mupirocin (Mupirocin) 22 Gm Oint...g., 0 GM TOP BID Discontinued Reason: No Longer Taking Prescribed by: CALEB FARRELL on 07/23/17 0842 Last Action: Discontinued Naproxen (Naprosyn) 500 Mg Tablet, 500 MG PO BID Discontinued Reason: No Longer Taking Prescribed by: CAROLINA LABOY on 12/04/19 1611 Last Action: Discontinued Oxycodone HCl/Acetaminophen (Oxycodone-Acetaminophen 5-325) 1 Each Tablet, 1 EAC H PO Q4H PRN for PAIN-MODERATE Discontinued Reason: No Longer Taking Prescribed by: DELORES STILL on 12/15/19 1921 Last Action: Discontinued Tramadol HCl (Tramadol HCl) 50 Mg Tablet, 50 MG PO Q6H PRN for PAIN Discontinued Reason: No Longer Taking Prescribed by: RIA ROCKWELL on 02/01/20 231 Last Action: Discontinued Review of Systems Constitutional: No chills, No fever Respiratory: no symptoms reported Cardiovascular: no symptoms reported Gastrointestinal: No abdominal pain, No nausea, No vomiting Musculoskeletal: no symptoms reported Skin: no symptoms reported Psychiatric/Neurological: See HPI Past Pwzgdkx-Tqhqsl-Pmtfrv Hx Immunizations Up To Date Tetanus Booster (TDap): Unknown PED Vaccines UTD: No Seasonal Allergies Seasonal Allergies: Yes Past Medical History Surgeries: Yes (LEFT WRIST, LEFT LEG X2, WISDOM TEETH, ) Respiratory: No Cardiac: No Neurological: No Gastrointestinal: No Musculoskeletal: No Degenerate Disk Disease Endocrine: No Cancer: No Psychosocial: No Integumentary: No Blood Disorders: No Family Medical History Patient reports no known family medical history. Physical Exam Vital Signs - First Documented 06/02/21 10:50 Temp 36.3 Pulse 110 Resp 16 B/P (MAP) 180/118 (138) Pulse Ox 99 O2 Delivery Room Air Capillary Refill : Height, Weight, BMI Height: 5'9.00" Weight: 218lbs. 0.0oz. [id number]; 33.00 BMI Method:Actual General Appearance: WD/WN, no apparent distress HEENT: PERRL/EOMI Respiratory: lungs clear, normal breath sounds Cardiovascular: normal peripheral pulses, regular rate, rhythm Gastrointestinal: non tender, soft Extremities: normal range of motion, non-tender, normal inspection, normal capillary refill Neurologic/Psychiatric: alert, normal mood/affect, oriented x 3 Appearance/Memory: neat Behavior/Eye Contact: cooperative, good eye contact, increased rate of speech, compulsive Thoughts/Hallucinations: grandiose Skin: normal color, warm/dry Progress/Results/Core Measures Results/Orders Lab Results Laboratory Tests Test 06/02/21 11:05 06/02/21 11:20 Range/Units White Blood Count 5.2 4.3-11.0 10^3/uL Red Blood Count 5.24 4.30-5.52 10^6/uL Hemoglobin 15.1 13.3-17.7 g/dL Hematocrit 45 40-54 % Mean Corpuscular Volume 85 80-99 fL Mean Corpuscular Hemoglobin 29 25-34 pg Mean Corpuscular Hemoglobin Concent 34 32-36 g/dL Red Cell Distribution Width 12.4 10.0-14.5 % Platelet Count 220 130-400 10^3/uL Mean Platelet Volume 11.0 9.0-12.2 fL Immature Granulocyte % (Auto) 0 % Neutrophils (%) (Auto) 63 42-75 % Lymphocytes (%) (Auto) 24 12-44 % Monocytes (%) (Auto) 8 0-12 % Eosinophils (%) (Auto) 4 0-10 % Basophils (%) (Auto) 1 0-10 % Neutrophils # (Auto) 3.3 1.8-7.8 X 10^3 Lymphocytes # (Auto) 1.3 1.0-4.0 X 10^3 Monocytes # (Auto) 0.4 0.0-1.0 X 10^3 Eosinophils # (Auto) 0.2 0.0-0.3 10^3/uL Basophils # (Auto) 0.1 0.0-0.1 10^3/uL Immature Granulocyte # (Auto) 0.0 0.0-0.1 10^3/uL Sodium Level 140 135-145 MMOL/L Potassium Level 3.7 3.6-5.0 MMOL/L Chloride Level 103 98-107 MMOL/L Carbon Dioxide Level 24 21-32 MMOL/L Anion Gap 13 5-14 MMOL/L Blood Urea Nitrogen 15 7-18 MG/DL Creatinine 1.23 0.60-1.30 MG/DL Estimat Glomerular Filtration Rate 66 BUN/Creatinine Ratio 12 Glucose Level 155 H 70-105 MG/DL Calcium Level 9.3 8.5-10.1 MG/DL Corrected Calcium 8.5-10.1 MG/DL Total Bilirubin 0.4 0.1-1.0 MG/DL Aspartate Amino Transf (AST/SGOT) 25 5-34 U/L Alanine Aminotransferase (ALT/SGPT) 19 0-55 U/L Alkaline Phosphatase 86 40-136 U/L Total Protein 7.9 6.4-8.2 GM/DL Albumin 5.1 H 3.2-4.5 GM/DL TSH [place] Testing 1.33 0.35-4.94 UIU/ML Serum Alcohol < 10 <10 MG/DL Urine Color YELLOW Urine Clarity SL CLOUDY Urine pH 5.5 5-9 Urine Specific [place] >=1.030 1.016-1.022 Urine Protein NEGATIVE NEGATIVE Urine Glucose (UA) NEGATIVE NEGATIVE Urine Ketones NEGATIVE NEGATIVE Urine Nitrite NEGATIVE NEGATIVE Urine Bilirubin NEGATIVE NEGATIVE Urine Urobilinogen 0.2 < = 1.0 MG/DL Urine Leukocyte Esterase NEGATIVE NEGATIVE Urine RBC (Auto) NEGATIVE NEGATIVE Urine RBC 0-2 /HPF Urine WBC RARE /HPF Urine Squamous Epithelial Cells RARE /HPF Urine Crystals NONE /LPF Urine Bacteria NEGATIVE /HPF Urine Casts PRESENT /LPF Urine Hyaline Casts RARE /LPF Urine Mucus MODERATE H /LPF Urine Culture Indicated NO Urine Opiates Screen NEGATIVE NEGATIVE Urine Oxycodone Screen NEGATIVE NEGATIVE Urine Methadone Screen NEGATIVE NEGATIVE Urine Propoxyphene Screen NEGATIVE NEGATIVE Urine Barbiturates Screen NEGATIVE NEGATIVE Ur Tricyclic Antidepressants Screen NEGATIVE NEGATIVE Urine Phencyclidine Screen NEGATIVE NEGATIVE Urine Amphetamines Screen NEGATIVE NEGATIVE Urine Methamphetamines Screen NEGATIVE NEGATIVE Urine Benzodiazepines Screen NEGATIVE NEGATIVE Urine Cocaine Screen NEGATIVE NEGATIVE Urine Cannabinoids Screen POSITIVE H NEGATIVE My Orders Orders - CAROLINA LABOY DO Ct Head Wo-R/O Stroke (06/02/21 10:56) Alcohol (06/02/21 10:56) Cbc With Automated Diff (06/02/21 10:56) Comprehensive Metabolic Panel (06/02/21 10:56) Drug Screen Stat (Urine) (06/02/21 10:56) Thyroid Analyzer (06/02/21 10:56) Ua Culture If Indicated (06/02/21 10:56) Vital Signs/I&O 06/02/21 10:50 Temp 36.3 Pulse 110 Resp 16 B/P (MAP) 180/118 (138) Pulse Ox 99 O2 Delivery Room Air Progress Progress Note : Progress Note I suspect that patient has a underlying bipolar disorder. His symptoms are very consistent with a manic episode. I discussed this with both patient and family. At this time he does not need acute admission for treatment since he is able to make reasonable decisions. I did discuss with him that however the need to follow-up and be further evaluated and medication adjustment. Patient was stable and discharged home. Initial ECG Impression Date: Jun 02, 2021 Diagnostic Imaging Diagonstic Imaging: CT Plain Films/CT/US/NM/MRI: head Comments No acute finding Reviewed: Discussed w/Radiologist Departure Impression Primary Impression: Sukumar Disposition: 01 HOME, SELF-CARE Condition: Stable Departure-Patient Inst. Referrals: NO,LOCAL PHYSICIAN (PCP/Family) Primary Care Physician Patient Instructions: Bipolar Disorder Add. Discharge Instructions: [facility]. CAROLINA LAOBY DO Jun 02, 2021 10:56
[2021-06-02 11:23] LABS: HEMATOCRIT 45 % (40-54); HEMOGLOBIN 15.1 g/dL (13.3-17.7); MEAN CORPUSCULAR HEMOGLOBIN 29 pg (25-34); WHITE BLOOD COUNT 5.2 10^3/uL (4.3-11.0)
[2021-06-02 11:24] LABS: MEAN CORPUSCULAR HGB CONC 34 g/dL (32-36); MEAN CORPUSCULAR VOLUME 85 fL (80-99); NEUTROPHILS % (AUTO) 63 % (42-75); PLATELET COUNT 220 10^3/uL (130-400)
[2021-06-02 11:27] LABS: BASOPHILS # (AUTO) 0.1 10^3/uL (0.0-0.1); BASOPHILS % (AUTO) 1 % (0-10); EOSINOPHILS # (AUTO) 0.2 10^3/uL (0.0-0.3); EOSINOPHILS % (AUTO) 4 % (0-10); LYMPHOCYTES # (AUTO) 1.3 X 10^3 (1.0-4.0); LYMPHOCYTES % (AUTO) 24 % (12-44); MONOCYTES # (AUTO) 0.4 X 10^3 (0.0-1.0); MONOCYTES % (AUTO) 8 % (0-12); NEUTROPHILS # (AUTO) 3.3 X 10^3 (1.8-7.8)
[2021-06-02 11:31] LABS: BILIRUBIN,URINE NEGATIVE (NEGATIVE); CLARITY,URINE SL CLOUDY; COLOR,URINE YELLOW; GLUCOSE, URINE (UA) NEGATIVE (NEGATIVE); KETONES,URINE NEGATIVE (NEGATIVE); LEUKOCYTE ESTERASE ,URINE NEGATIVE (NEGATIVE); NITRITE,URINE NEGATIVE (NEGATIVE); PH,URINE 5.5 (5-9); PROTEIN,URINE NEGATIVE (NEGATIVE)
[2021-06-02 11:37] LABS: CARBON DIOXIDE 24 MMOL/L (21-32); CHLORIDE 103 MMOL/L (98-107); POTASSIUM 3.7 MMOL/L (3.6-5.0); SODIUM 140 MMOL/L (135-145)
[2021-06-02 11:38] LABS: ALANINE AMINOTRANSFERASE 19 U/L (0-55); ALBUMIN 5.1 GM/DL (3.2-4.5); ALKALINE PHOSPHATASE 86 U/L (40-136); BILIRUBIN,TOTAL 0.4 MG/DL (0.1-1.0); BUN/CREATININE RATIO 12; CALCIUM 9.3 MG/DL (8.5-10.1); CREATININE SERUM 1.23 MG/DL (0.60-1.30); GFR ESTIMATED 66; GLUCOSE 155 MG/DL (70-105); TOTAL PROTEIN 7.9 GM/DL (6.4-8.2)
[2021-06-02 11:50] LABS: BACTERIA,URINE NEGATIVE /HPF; SQUAMOUS EPITHELIAL CELL,UR RARE /HPF
[2021-06-02 11:51] LABS: HYALINE CASTS, URINE RARE /LPF; RBC,URINE 0-2 /HPF
[2021-06-02 11:52] LABS: AMPHETAMINE SCREEN, URINE NEGATIVE (NEGATIVE); BENZODIAZEPINES SCREEN URINE NEGATIVE (NEGATIVE); COCAINE SCREEN URINE NEGATIVE (NEGATIVE); METHAMPHETAMINE SCREEN URINE S NEGATIVE (NEGATIVE); WBC,URINE RARE /HPF
[2021-06-02 11:53] LABS: BARBITURATE SCREEN URINE NEGATIVE (NEGATIVE); CANNABINOID SCREEN, URINE POSITIVE (NEGATIVE); METHADONE STAT NEGATIVE (NEGATIVE); OPIATE SCREEN URINE NEGATIVE (NEGATIVE); OXYCODONE STAT NEGATIVE (NEGATIVE); PROPOXYPHENE STAT NEGATIVE (NEGATIVE); TRICYCLIC ANTIDEPRESSANTS SCRE NEGATIVE (NEGATIVE)
--- NOTE | 2021-06-02 12:33 | Diagnostic Imaging Report ---
PROCEDURE: CT head wo r/o stroke. TECHNIQUE: Multiple contiguous axial images were obtained through the brain without the use of intravenous contrast. Auto Exposure Controls were utilized during the CT exam to meet ALARA standards for radiation dose reduction. INDICATION: Altered mental status, fall sustained 6 days ago. FINDINGS: There is no intracerebral hemorrhage. No acute extra-axial fluid collection. No focal or generalized cerebral edema. The cortical flannery-white matter differentiations are maintained. The basilar cisterns patent. There is no sulcal effacement. There was no evidence for an elevation of the intracranial pressures. Incidental cavum septum pellucidum is a ventricular development or variant noted. Orbits, sinuses and calvarium appeared nonacute. IMPRESSION: No hemorrhage, edema, fracture or other acute abnormalities identified. Called to Dr. Morris at 11:16 a.m. by cvb. Dictated by: Dictated on workstation # [id number]
[2021-06-02 15:46] LABS: TSH (THYROID ANALYZER) 1.33 UIU/ML (0.35-4.94)
== END 2021-06-02 13:16 | disposition home or self-care (01) ==
LOC: EDUNIT# 10:40 → ER FS 10:43
DX: F30.9 Manic episode, unspecified (principal)
CPT/HCPCS: 36415; 70450; 80053; 80306; 80320; 81000; 84443; 85025

== ENCOUNTER 2022-04-02 18:02 | Emergency (ER) | payer OTHER ==
[~2022-04-02] VITALS: Ht 172.7 cm; Wt 95.0 kg
--- NOTE | 2022-04-02 18:11 | ED General ---
General Chief Complaint: General Problems/Pain Stated Complaint: L LEG LAC,SOB History of Present Illness Date Seen by Provider: Apr 02, 2022 Time Seen by Provider: 18:11 Initial Comments 41-year-old male presents with "he is sick" patient is very vague. He reports that he is just been "going downhill since this morning" he complains of some shortness of breath but no cough, patient reports that he feels like he had some tingling in his left extremities with no weakness. Patient reports that he has a healing laceration on his left leg is a little red that was concerning to him however is not spreading. Patient reports a recent trip to [place] by plane. Patient denies any chest pain, nausea, vomiting but just complains of generalized malaise. Patient reports that he was concerned that his "temperature was 95" Allergies and Home Medications Allergies Coded Allergies: No Known Drug Allergies (Unverified , 07/06/17) Patient Home Medication List Home Medication List Reviewed: Yes Review of Systems Review of Systems Constitutional: see HPI, malaise EENTM: no symptoms reported Respiratory: No cough, No orthopnea; short of breath Cardiovascular: No chest pain, No palpitations Gastrointestinal: No abdominal pain, No nausea, No vomiting Genitourinary: no symptoms reported Musculoskeletal: no symptoms reported Skin: no symptoms reported Psychiatric/Neurological: See HPI Past Upsrvwq-Diryid-Jveuve Hx Immunizations Up To Date Tetanus Booster (TDap): Unknown PED Vaccines UTD: No Second COVID19 Vaccination Juan: 05/29 Seasonal Allergies Seasonal Allergies: Yes Past Medical History Surgeries: Yes (LEFT WRIST, LEFT LEG X2, WISDOM TEETH, ) Respiratory: No Cardiac: No Neurological: No Gastrointestinal: No Musculoskeletal: No Degenerate Disk Disease Endocrine: No Cancer: No Psychosocial: No Integumentary: No Blood Disorders: No Family Medical History Patient reports no known family medical history. Physical Exam Vital Signs Vital Signs - First Documented 04/02/22 18:11 Temp 36.3 Pulse 117 Resp 24 B/P (MAP) 192/97 (128) Pulse Ox 99 O2 Delivery Room Air Capillary Refill : Height, Weight, BMI Height: 5'9.00" Weight: 218lbs. 0.0oz. 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 Norm as Tested, Other (Extremely anxious) Skin: Other (Old laceration wound that is healing appropriately with no signs of infection on the left [place]) Lymphatic: No Adenopathy Progress/Results/Core Measures Suspected Sepsis SIRS Temperature: Pulse: Respiratory Rate: Laboratory Tests 04/02/22 18:27: White Blood Count 8.7 Blood Pressure / Mean: Laboratory Tests 04/02/22 18:27: Creatinine 1.20, Platelet Count 246, Total Bilirubin 0.6 Results/Orders Lab Results Laboratory Tests Test 04/02/22 18:27 04/02/22 18:39 Range/Units White Blood Count 8.7 4.3-11.0 10^3/uL Red Blood Count 5.39 4.30-5.52 10^6/uL Hemoglobin 16.3 13.3-17.7 g/dL Hematocrit 45 40-54 % Mean Corpuscular Volume 83 80-99 fL Mean Corpuscular Hemoglobin 30 25-34 pg Mean Corpuscular Hemoglobin Concent 37 H 32-36 g/dL Red Cell Distribution Width 13.2 10.0-14.5 % Platelet Count 246 130-400 10^3/uL Mean Platelet Volume 9.6 9.0-12.2 fL Immature Granulocyte % (Auto) 0 % Neutrophils (%) (Auto) 78 H 42-75 % Lymphocytes (%) (Auto) 14 12-44 % Monocytes (%) (Auto) 6 0-12 % Eosinophils (%) (Auto) 0 0-10 % Basophils (%) (Auto) 1 0-10 % Neutrophils # (Auto) 6.8 1.8-7.8 10^3/uL Lymphocytes # (Auto) 1.3 1.0-4.0 10^3/uL Monocytes # (Auto) 0.6 0.0-1.0 10^3/uL Eosinophils # (Auto) 0.0 0.0-0.3 10^3/uL Basophils # (Auto) 0.1 0.0-0.1 10^3/uL Immature Granulocyte # (Auto) 0.0 0.0-0.1 10^3/uL D-Dimer 0.16 0.00-0.49 UG/ML Sodium Level 136 135-145 MMOL/L Potassium Level 4.0 3.6-5.0 MMOL/L Chloride Level 98 98-107 MMOL/L Carbon Dioxide Level 19 L 21-32 MMOL/L Anion Gap 19 H 5-14 MMOL/L Blood Urea Nitrogen 17 7-18 MG/DL Creatinine 1.20 0.60-1.30 MG/DL Estimat Glomerular Filtration Rate 78 BUN/Creatinine Ratio 14 Glucose Level 113 H 70-105 MG/DL Calcium Level 9.7 8.5-10.1 MG/DL Corrected Calcium 8.5-10.1 MG/DL Magnesium Level 1.9 1.6-2.4 MG/DL Total Bilirubin 0.6 0.1-1.0 MG/DL Aspartate Amino Transf (AST/SGOT) 30 5-34 U/L Alanine Aminotransferase (ALT/SGPT) 22 0-55 U/L Alkaline Phosphatase 68 40-136 U/L Troponin I < 0.30 <0.30 NG/ML C-Reactive Protein < 0.30 <0.50 MG/DL Total Protein 7.8 6.4-8.2 GM/DL Albumin 5.0 H 3.2-4.5 GM/DL Serum Alcohol < 10 <10 MG/DL SARS-CoV-2 RNA (RT-PCR) Not Detected Not Detecte Urine Color YELLOW Urine Clarity CLEAR Urine pH 7.5 5-9 Urine Specific [place] 1.020 1.016-1.022 Urine Protein NEGATIVE NEGATIVE Urine Glucose (UA) NEGATIVE NEGATIVE Urine Ketones 1+ H NEGATIVE Urine Nitrite NEGATIVE NEGATIVE Urine Bilirubin NEGATIVE NEGATIVE Urine Urobilinogen 0.2 < = 1.0 MG/DL Urine Leukocyte Esterase NEGATIVE NEGATIVE Urine RBC (Auto) NEGATIVE NEGATIVE Urine RBC NONE /HPF Urine WBC RARE /HPF Urine Squamous Epithelial Cells NONE /HPF Urine Crystals PRESENT H /LPF Urine Amorphous Sediment FEW AYO PHOSPHATE H /LPF Urine Bacteria NEGATIVE /HPF Urine Casts NONE /LPF Urine Mucus SMALL H /LPF Urine Culture Indicated NO Urine Opiates Screen NEGATIVE NEGATIVE Urine Oxycodone Screen NEGATIVE NEGATIVE Urine Methadone Screen NEGATIVE NEGATIVE Urine Propoxyphene Screen NEGATIVE NEGATIVE Urine Barbiturates Screen NEGATIVE NEGATIVE Ur Tricyclic Antidepressants Screen NEGATIVE NEGATIVE Urine Phencyclidine Screen NEGATIVE NEGATIVE Urine Amphetamines Screen NEGATIVE NEGATIVE Urine Methamphetamines Screen NEGATIVE NEGATIVE Urine Benzodiazepines Screen NEGATIVE NEGATIVE Urine Cocaine Screen NEGATIVE NEGATIVE Urine Cannabinoids Screen POSITIVE H NEGATIVE My Orders Orders - CAROLINA LABOY L DO Alcohol (04/02/22 18:12) Cbc With Automated Diff (04/02/22 18:12) Comprehensive Metabolic Panel (04/02/22 18:12) Fibrin Degradation Products (04/02/22 18:12) Drug Screen Stat (Urine) (04/02/22 18:12) Magnesium (04/02/22 18:12) Ua Culture If Indicated (04/02/22 18:12) Crp Fs (04/02/22 18:12) Troponin I Fs (04/02/22 18:12) Covid 19 Inhouse Test (04/02/22 18:12) Ns Iv 1000 Ml (Sodium Chloride 0.9%) (04/02/22 18:12) Chest 1 View Ap/Pa Only (04/02/22 18:12) Ondansetron Injection (Zofran Injectio (04/02/22 18:45) Medications Given in ED Current Medications Medications Dose Ordered Sig/Benny Route Start Time Stop Time Status Last Admin Dose Admin Ondansetron HCl 4 mg ONCE ONCE IVP 04/02/22 18:45 04/02/22 18:46 DC 04/02/22 18:58 4 MG Vital Signs/I&O 04/02/22 18:11 Temp 36.3 Pulse 117 Resp 24 B/P (MAP) 192/97 (128) Pulse Ox 99 O2 Delivery Room Air Capillary Refill : Diagnostic Imaging Diagonstic Imaging: Xray Plain Films/CT/US/NM/MRI: chest Comments Date of Exam:04/02/22 CHEST 1 VIEW AP/PA ONLY INDICATION: Shortness of breath, left arm tingling. TECHNIQUE: Single view chest 6:20 PM. CORRELATION STUDY: None FINDINGS: The heart size, mediastinal configuration and pulmonary vascularity are within normal limits. The lungs are clear with no consolidating infiltrate. There is no significant effusion or pneumothorax. IMPRESSION: 1. Negative appearing single view chest. Departure Impression Primary Impression: Upset stomach Additional Impression: Stomach flu Disposition: 01 HOME, SELF-CARE Condition: Improved Departure-Patient Inst. Referrals: NO,LOCAL PHYSICIAN (PCP/Family) Primary Care Physician Patient Instructions: Viral Gastroenteritis, Adult (DC) Add. Discharge Instructions: Clear liquid diet, advance as tolerated With your primary care provider in a couple days if symptoms or not improving All discharge instructions reviewed with patient and/or family. Voiced understanding. Scripts Ondansetron (Ondansetron Odt) 4 Mg Tab.rapdis 4 MG PO Q6H PRN for NAUSEA/VOMITING, #20 TAB 0 Refills Prov: CAROLINA LABOY DO 04/02/22 CAROLINA LABOY DO Apr 02, 2022 18:11
[2022-04-02] MEDS ORDERED: NS IV 1000 ML 1,000 ML IV STA (18:12)
--- NOTE | 2022-04-02 18:26 | Diagnostic Imaging Report ---
INDICATION: Shortness of breath, left arm tingling. TECHNIQUE: Single view chest 6:20 PM. CORRELATION STUDY: None FINDINGS: The heart size, mediastinal configuration and pulmonary vascularity are within normal limits. The lungs are clear with no consolidating infiltrate. There is no significant effusion or pneumothorax. IMPRESSION: 1. Negative appearing single view chest. Dictated by: Dictated on workstation # [id number]
[2022-04-02 18:35] LABS: BASOPHILS # (AUTO) 0.1 10^3/uL (0.0-0.1); BASOPHILS % (AUTO) 1 % (0-10); EOSINOPHILS % (AUTO) 0 % (0-10); HEMATOCRIT 45 % (40-54); HEMOGLOBIN 16.3 g/dL (13.3-17.7); LYMPHOCYTES # (AUTO) 1.3 10^3/uL (1.0-4.0); LYMPHOCYTES % (AUTO) 14 % (12-44); MEAN CORPUSCULAR HEMOGLOBIN 30 pg (25-34); MEAN CORPUSCULAR HGB CONC 37 g/dL (32-36); MEAN CORPUSCULAR VOLUME 83 fL (80-99); MEAN PLATELET VOLUME 9.6 fL (9.0-12.2); MONOCYTES # (AUTO) 0.6 10^3/uL (0.0-1.0); MONOCYTES % (AUTO) 6 % (0-12); NEUTROPHILS # (AUTO) 6.8 10^3/uL (1.8-7.8); NEUTROPHILS % (AUTO) 78 % (42-75); PLATELET COUNT 246 10^3/uL (130-400); WHITE BLOOD COUNT 8.7 10^3/uL (4.3-11.0)
[2022-04-02 18:45] LABS: BILIRUBIN,URINE NEGATIVE (NEGATIVE); CLARITY,URINE CLEAR; COLOR,URINE YELLOW; GLUCOSE, URINE (UA) NEGATIVE (NEGATIVE); KETONES,URINE 1+ (NEGATIVE); LEUKOCYTE ESTERASE ,URINE NEGATIVE (NEGATIVE); NITRITE,URINE NEGATIVE (NEGATIVE); PH,URINE 7.5 (5-9); PROTEIN,URINE NEGATIVE (NEGATIVE)
[2022-04-02] MEDS ORDERED: ONDANSETRON 4 MG/2 ML (SDV) Z0FRAN IVP ONE (18:45)
[2022-04-02 18:52] LABS: BACTERIA,URINE NEGATIVE /HPF; WBC,URINE RARE /HPF
[2022-04-02 18:53] LABS: AMORPHOUS SEDIMENT,UR FEW AMOR PHOSPHATE /LPF
[2022-04-02 18:54] LABS: AMPHETAMINE SCREEN, URINE NEGATIVE (NEGATIVE); BARBITURATE SCREEN URINE NEGATIVE (NEGATIVE); BENZODIAZEPINES SCREEN URINE NEGATIVE (NEGATIVE); CANNABINOID SCREEN, URINE POSITIVE (NEGATIVE); COCAINE SCREEN URINE NEGATIVE (NEGATIVE); OPIATE SCREEN URINE NEGATIVE (NEGATIVE); TRICYCLIC ANTIDEPRESSANTS SCRE NEGATIVE (NEGATIVE)
[2022-04-02 18:55] LABS: METHADONE STAT NEGATIVE (NEGATIVE); OXYCODONE STAT NEGATIVE (NEGATIVE); PROPOXYPHENE STAT NEGATIVE (NEGATIVE)
[2022-04-02 18:58] LABS: BILIRUBIN,TOTAL 0.6 MG/DL (0.1-1.0); BUN/CREATININE RATIO 14; CALCIUM 9.7 MG/DL (8.5-10.1); CARBON DIOXIDE 19 MMOL/L (21-32); CHLORIDE 98 MMOL/L (98-107); GFR ESTIMATED 78; GLUCOSE 113 MG/DL (70-105); MAGNESIUM 1.9 MG/DL (1.6-2.4); SODIUM 136 MMOL/L (135-145)
[2022-04-02 18:59] LABS: ALANINE AMINOTRANSFERASE 22 U/L (0-55); ALKALINE PHOSPHATASE 68 U/L (40-136); TOTAL PROTEIN 7.8 GM/DL (6.4-8.2)
[2022-04-02] MEDS ORDERED: ONDA4TAB11 PO (19:11)
[2022-04-02 19:18] VITALS: BP 176/92
== END 2022-04-02 19:20 | disposition home or self-care (01) ==
LOC: EDUNIT# 18:02 → ER FS 18:03
DX: J11.2 Influenza due to unidentified influenza virus with gastrointestinal manifestations (principal); Z20.822 Contact with and (suspected) exposure to COVID-19
CPT/HCPCS: 36415; 71045; 80053; 80306; 80320; 81000; 83735; 84484; 85025; 85379; 86141; 87636

== ENCOUNTER 2022-05-03 07:04 | Emergency (ER) | payer OTHER ==
[~2022-05-03] VITALS: Ht 172.7 cm; Wt 93.0 kg
[~2022-05-03 07:04] MED LIST changes: +ONDA4TAB11 PO
[2022-05-03] MEDS ORDERED: IBUPROFEN 800 MG (MOTRIN) TAB PO STA (07:17)
--- NOTE | 2022-05-03 07:32 | ED Lower Extremity ---
General Chief Complaint: Lower Extremity Stated Complaint: RT TOE INJ Source: patient History of Present Illness Date Seen by Provider: May 03, 2022 Time Seen by Provider: 07:08 Initial Comments 41-year-old male presenting with complaints of pain to his right fourth toe. He states that he was walking the dogs and accidentally caught his toe and foot on a pocket door. He had immediate pain. He has not taken anything for pain. He states it hurts to walk on his heel. He reports this happened around 6:45 AM. He denies any other injuries. Onset: just prior to arrival Severity: severe Pain/Injury Location: right 4th toe Method of Injury: direct blow Modifying Factors: Worse With Movement Allergies and Home Medications Allergies Coded Allergies: No Known Drug Allergies (Unverified , 07/06/17) Patient Home Medication List Home Medication List Reviewed: Yes Hydrocodone/Acetaminophen (Hydrocodone-Acetamin 5-325 mg) 5 Mg-325 Mg Tablet, 1 TAB PO Q6H PRN for PAIN-SEVERE (8-10) Prescribed by: LING OSORIO on 05/03/22 0751 Ibuprofen (Ibuprofen) 800 Mg Tablet, 800 MG PO Q8H PRN for PAIN Prescribed by: LING OSORIO on 05/03/22 0750 Ondansetron (Ondansetron Odt) 4 Mg Tab.rapdis, 4 MG PO Q6H PRN for NAUSEA/VOMITING Prescribed by: CAROLINA LABOY on 04/02/22 191 Review of Systems Constitutional: No chills, No fever EENTM: no symptoms reported Respiratory: no symptoms reported Cardiovascular: no symptoms reported Gastrointestinal: no symptoms reported Genitourinary: no symptoms reported Musculoskeletal: see HPI Skin: change in color (Bruising is starting to appear on the fourth toe of his right foot) Psychiatric/Neurological: Denies Numbness, Denies Paresthesia Past Rjvmqhd-Yvtjjq-Ngvftt Hx Patient Social History Tobacco Use?: No Smoking Status: Never a Smoker Smokeless Tobacco Frequency: Never a User Use of E-Cig and/or Vaping dev: No Use of E-Cig and/or Vaping Nilo: Never a User Substance use?: No Alcohol Use?: No Pt feels they are or have been: No Immunizations Up To Date Tetanus Booster (TDap): Unknown PED Vaccines UTD: No First/Initial COVID19 Vaccinat: 05/29 Second COVID19 Vaccination Juan: 05/29 Third COVID19 Vaccination Date: 05/29 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 Physical Exam Vital Signs Vital Signs - First Documented 05/03/22 07:13 Temp 36.0 Pulse 76 Resp 17 B/P (MAP) 176/107 (130) O2 Delivery Room Air Capillary Refill : Height, Weight, BMI Height: 5'9.00" Weight: 218lbs. 0.0oz. 98.617841wa; 31.00 BMI Method:Actual General Appearance: WD/WN, mild distress Cardiovascular: normal peripheral pulses Feet: right foot ecchymosis (Right fourth toe), right foot limited range of motion (Patient reports pain from his right fourth toe all the way back to his heel and increased pain with movement), right foot pain (Right fourth toe), right foot swelling (Right fourth toe) Neurologic/Tendon: normal sensation, normal motor functions Neurologic/Psychiatric: no motor/sensory deficits, alert, oriented x 3 Skin: warm/dry, ecchymosis (Bruising starting to appear on the right fourth toe) Procedures/Interventions Splinting and Joint Reduction : Location: Right fourth toe Pre-Proc Neuro Vasc Exam: normal Post-Proc Neuro Vasc Exam: normal Progress A digital block was placed on the right fourth toe to help with pain. Then the toe was pushed medially to help with alignment. His toe did have a more straight alignment after this. The toe was then yamilka taped to his third toe. Placed in a postop shoe. Counseled on follow-up and return precautions. Patient was neurovascular and tendon intact both pre and post procedure. Additional Procedures: Digital Block Progress After obtaining verbal consent from the patient the fourth toe was cleaned with alcohol. Then using a total of 4 mL of 1% plain lidocaine a digital block was placed by infiltrating medicine in a ring fashion of the toe. Patient tolerated procedure well without any immediate complication. He had improvement in his symptoms. Counseled on follow-up and return precautions. Yamilka tape toes 3 and 4 together. Progress/Results/Core Measures Results/Orders My Orders Orders - LING OSORIO MD Ibuprofen Tablet (Motrin Tablet) (05/03/22 07:17) Ice: Apply To Affected Area (05/03/22 07:17) Elevate Affected Extremity (05/03/22 07:17) Toe(S) (05/03/22 07:17) Post-Op Shoe (05/03/22 08:19) Vital Signs/I&O 05/03/22 07:13 Temp 36.0 Pulse 76 Resp 17 B/P (MAP) 176/107 (130) O2 Delivery Room Air Progress Progress Note #1: Progress Note Since he is not taking anything for pain we will order dose of ibuprofen and ice pack with elevation. X-rays ordered to evaluate his toe and foot. Progress Note #2: Progress Note X-rays show a comminuted intra-articular fracture of the proximal phalanx of his fourth toe. There is also a small fracture to the distal phalanx of his third toe. A digital block was placed on the fourth toe and toe was pushed over to be closer to the third toe. This helped with alignment of the toe. Placed in a postop shoe and the third and fourth toes were yamilka taped together. Counseled on follow-up and return precautions. Weightbearing as tolerated. Ice and elevate as much as possible to help with pain and throbbing. Sent with scripts for hydrocodone and ibuprofen. Diagnostic Imaging Diagonstic Imaging: Xray Plain Films/CT/US/NM/MRI: other (right foot/4th toe) Comments [facility] [place] NAME: SONAM CROSS Gaby [facility] REC#: [id number] PT STATUS: REG ER : 1980 PHYSICIAN: LING OSORIO MD ADMIT DATE: 05/03/22/ER FS Draft Date of Exam:05/03/22 TOE(S) INDICATION: Injury, pain 4th toe. EXAMINATION: Right toes 05/02/2022. FINDINGS: 3 views of the toes. There is a comminuted intra-articular fracture of the mid and proximal 4th proximal phalanx. Mild angulation is noted at the fracture site. There is no dislocation. The remaining osseous structures intact. IMPRESSION: 1. Comminuted intra-articular fracture of the 4th proximal phalanx. 2. Not mentioned in the body of the report there is a lucency along the base of the distal 3rd phalanx, possibly an acute fracture as well. Correlate for point tenderness. Dictated on workstation # [id number] Dict: 05/03/22 0743 Trans: 05/03/22 0745 [facility] [id number] Interpreted by: GEM DIXON MD Electronically signed by: Reviewed: Reviewed by Me Departure Impression Primary Impression: Displaced fracture of proximal phalanx of toe of right foot Additional Impressions: Contusion of fourth toe of right foot Qualified Codes: S90.121A - Contusion of right lesser toe(s) without damage to nail, initial encounter Acute pain of right foot Closed Salter-Hernandez type III physeal fracture of distal phalanx of lesser toe of right foot Qualified Codes: S99.231A - Salter-Hernandez type III physeal fracture of phalanx of right toe, initial encounter for closed fracture Disposition: 01 HOME, SELF-CARE Condition: Stable Departure-Patient Inst. Decision time for Depature: 08:17 Referrals: LISA LION NO,LOCAL PHYSICIAN (PCP) Primary Care Physician [facility] Patient Instructions: Toe Fracture ED Add. Discharge Instructions: Yamilka tape the toe to the toe next to it to help stabilize it. Use Post Op shoe to help with pain as it will force you to lift your foot to walk rather than putting so much pressure on the toes Ice 20-30 minutes every few hours as needed for pain. Try to elevate your foot above waist level when you can to help with pain and swelling. The more you have it down below waist level the more it will swell, throb and be painful Ibuprofen 800 mg every 8 hours as needed for pain and swelling. For severe pain take Hydrocodone/Acetaminophen. Follow up with clinic or orthopedics to see that it is healing and help with pain control. Nurse Practitioner Rik Lion works with Orthopedics Doctor, Dr. Eric. Rik sees patients here in [place] and you can call about an appointment by calling [phone] All discharge instructions reviewed with patient and/or family. Voiced understanding. Scripts Hydrocodone/Acetaminophen (Hydrocodone-Acetamin 5-325 mg) 5 Mg-325 Mg Tablet 1 TAB PO Q6H PRN for PAIN-SEVERE (8-10) for 5 Days, #20 TAB 0 Refills Prov: LING OSORIO MD 05/03/22 Ibuprofen (Ibuprofen) 800 Mg Tablet 800 MG PO Q8H PRN for PAIN for 10 Days, #30 TAB 0 Refills Prov: LING OSORIO MD 05/03/22 LING OSORIO MD May 03, 2022 07:32
--- NOTE | 2022-05-03 07:46 | Diagnostic Imaging Report ---
INDICATION: Injury, pain 4th toe. EXAMINATION: Right toes 05/02/2022. FINDINGS: 3 views of the toes. There is a comminuted intra-articular fracture of the mid and proximal 4th proximal phalanx. Mild angulation is noted at the fracture site. There is no dislocation. The remaining osseous structures intact. IMPRESSION: 1. Comminuted intra-articular fracture of the 4th proximal phalanx. 2. Not mentioned in the body of the report there is a lucency along the base of the distal 3rd phalanx, possibly an acute fracture as well. Correlate for point tenderness. Dictated by: Dictated on workstation # [id number]
[2022-05-03] MEDS ORDERED: IBUP-1780 PO (07:50)
[2022-05-03] MEDS ORDERED: ACHD5005 PO (07:50)
[2022-05-03 08:25] VITALS: BP 155/81
== END 2022-05-03 08:25 | disposition home or self-care (01) ==
LOC: EDUNIT# 07:04 → ER FS 07:06
DX: S92.511A Displaced fracture of proximal phalanx of right lesser toe(s), initial encounter for closed fracture (principal); W23.1XXA Caught, crushed, jammed, or pinched between stationary objects, initial encounter; Y93.K1 Activity, walking an animal
CPT/HCPCS: 73660

== ENCOUNTER → 2022-05-04 | Outpatient (CLI) | payer BC, OTHER ==
[~2022-05-04] MED LIST changes: +ACHD5005 PO; +IBUP-1780 PO
--- NOTE | 2022-05-04 15:55 | Diagnostic Imaging Report ---
INDICATION: Fracture, pain COMPARISON: 05/03/2022 TECHNIQUE: 5 radiographs of the toes of the right foot are obtained dated 05/04/2022. FINDINGS: Comminuted fracture involving the 4th digit proximal phalanx with intra-articular extension to the 4th MTP joint is again identified, appearing in stable alignment. No periosteal reaction. Transversely oriented lucency with associated cortical disruption is identified involving the base of the 3rd digit distal phalanx. This appears similar to the prior examination. No periosteal reaction. This is not seen on the lateral or frontal radiographs. No additional fracture or dislocation. No suspicious radiopaque foreign body. IMPRESSION: Persistent comminuted fracturing of the 4th digit proximal phalanx with intra-articular extension to the 4th MTP joint, stable. Suspected nondisplaced fracture involving the base of the 3rd digit distal phalanx. This appears stable from the prior examination. Dictated by: Dictated on workstation # [id number]
== END ==
LOC: RAD FS 10:17
PROVIDERS: ATTEND Nurse Practitioner
DX: S92.511D Displaced fracture of proximal phalanx of right lesser toe(s), subsequent encounter for fracture with routine healing (principal); S92.521D Displaced fracture of middle phalanx of right lesser toe(s), subsequent encounter for fracture with routine healing; X58.XXXD Exposure to other specified factors, subsequent encounter
CPT/HCPCS: 73660

== ENCOUNTER → 2022-05-25 | Outpatient (CLI) | payer BC ==
--- NOTE | 2022-05-25 12:45 | Diagnostic Imaging Report ---
HISTORY: Followup toe fracture. COMPARISON: 05/04/2022. TECHNIQUE: Frontal view of the foot. Three views of the right 4th toe. FINDINGS: Redemonstrated is an intra-articular fracture at the shaft and base of the right 4th toe proximal phalanx. There is slight medial displacement and mild dorsal angulation. There does appear to be mild healing change compared to the prior exam although the fracture remains clearly evident. The previously described fracture at the base of the 3rd toe distal phalanx is not well seen on this exam and is better seen on the prior study but no significant displacement is identified. No additional fractures are identified. Joint spaces are preserved. IMPRESSION: 1. Healing intra-articular fracture of the right 4th toe proximal phalangeal base in unchanged alignment. 2. Fracture of the right 3rd toe distal phalangeal base is better seen on the prior exam. Alignment appears unchanged. Dictated by: Dictated on workstation # [id number]
== END ==
LOC: RAD FS 09:12
PROVIDERS: ATTEND Nurse Practitioner
DX: S92.911D Unspecified fracture of right toe(s), subsequent encounter for fracture with routine healing (principal); X58.XXXD Exposure to other specified factors, subsequent encounter
CPT/HCPCS: 73660